=== PATIENT | female | born 1955 | race American Indian/Alaskan Native ===

== ENCOUNTER 2016-09-14 14:57 | Emergency (ER) | payer MEDICARE, MEDICAID ==
[2016-09-14 15:45] VITALS: BP 109/70
[2016-09-14] MEDS ORDERED: Clindamycin HCl 150 MG Cap PO ONE ×2 (16:27→16:38)
[2016-09-14] MEDS ORDERED: Clindamycin HCl 150 MG Cap ONE (16:38)
--- NOTE | 2016-09-15 16:16 | EDM.PDOC ---
Scribed by Juana Mendez 09/15/16 [id number] for Jorge Scales MD ED HPI GENERAL MEDICAL PROBLEM - General Chief Complaint: Skin Complaint Stated Complaint: TAILBONE LUMP, NAUSATED, [id number] Time Seen by Provider: 09/14/16 16:20 Source of Information: Reports: Patient, RN, RN Notes Reviewed History Limitations: Reports: No Limitations - History of Present Illness INITIAL COMMENTS - FREE TEXT/NARRATIVE: Arrives from home by POV with complaint of worsening pain to low back and tailbone area. Denies injury. Patient saw Dr. Torres for this yesterday. Patient was put on antibiotics, but doesn't know what kind or what for. Daughter reports that patient finished the antibiotics about 2 weeks ago and that it was Augmentin prescribed for a skin infection at the tailbone area. Denies injury. Patient takes chronic opioid pain medication for chronic DJD of the spine. Quality: Reports: Ache Severity: Severe Improves with: Reports: None Worsens with: Reports: None Associated Symptoms: Reports: No Other Symptoms Sacral Pain Score (Numeric/FACES): 7 - Related Data Allergies Allergy/AdvReac Type Severity Reaction Status Date / Time No Known Allergies Allergy Verified 09/14/16 15:23 Home Meds: Home Meds Fluticasone Propionate [Flonase] 2 spray HOWIE DAILY 12/20/13 [History] Gabapentin [Neurontin] 300 mg PO TID 12/20/13 [History] Levothyroxine 125 mcg PO DAILY 12/20/13 [History] Lisinopril [Prinivil] 20 mg PO DAILY 12/20/13 [History] Morphine 30 mg PO BID 12/20/13 [History] Oxybutynin 5 mg PO TID 12/20/13 [History] PARoxetine HCl [Paroxetine HCl] 20 mg PO DAILY 12/20/13 [History] oxyCODONE [oxyCODONE] 10 mg PO QID PRN 12/20/13 [History] B12 1 injection IM .Q30D 10/20/14 [History] Cranberry Softgells 1 ea PO ASDIRECTED 10/20/14 [History] Vitamin C 1 tab PO ASDIRECTED 10/20/14 [History] Nitrofurantoin Macrocrystal [Macrodantin] 100 mg PO BID 12/03/14 [History] Omeprazole 20 mg PO ACBRK 12/03/14 [History] PARoxetine HCl [Paroxetine HCl] 1 tab PO DAILY 12/03/14 [History] Phenazopyridine [Pyridium] 100 mg PO TID PRN 12/03/14 [History] Propranolol [Inderal LA] 60 mg PO DAILY 12/03/14 [History] Sertraline [Zoloft] 100 mg PO DAILY 12/03/14 [History] Triamcinolone Acetonide [Triamcinolone Acetonide 0.1% Crm] 15 gm TOP BID [History] rOPINIRole HCl [Ropinirole HCl] 1 tab PO DAILY 12/03/14 [History] Past Medical History HEENT History: Reports: None Cardiovascular History: Reports: CAD, SOB on Exertion Respiratory History: Reports: None Genitourinary History: Reports: UTI, Recurrent Other Musculoskeletal History: hip and knee pain Neurological History: Reports: None Other Dermatologic History: several tattoos to bilateral arms - Infectious Disease History Infectious Disease History: Reports: MRSA Social & Family History - Family History Family Medical History: Noncontributory - Tobacco Use Smoking Status *Q: Current Some Day Smoker Years of Tobacco use: 15 Packs/Tins Daily: 0.5 Second Hand Smoke Exposure: Yes - Caffeine Use Caffeine Use: Reports: Coffee, Soda - Alcohol Use Days Per Week of Alcohol Use: 0 - Recreational Drug Use Recreational Drug Use: No ED ROS GENERAL - Review of Systems Review Of Systems: ROS reveals no pertinent complaints other than HPI. ED EXAM,LOWER BACK PAIN/INJURY - Physical Exam Exam: See Below Exam Limited By: No Limitations General Appearance: Obese (morbidly), Other (chronically ill appearing.) Neck: Normal Inspection, Supple, Non-Tender, Full Range of Motion Respiratory/Chest: No Respiratory Distress Cardiovascular: Normal Peripheral Pulses, Regular Rate, Rhythm, No Edema, No Gallop, No JVD, No Murmur, No Rub Back Exam: Normal Inspection, Full Range of Motion, NT Extremities: Other (Full ROM to bilateral upper and lower extremities. No acute injury. Chronically limited ROM at L-spine.) Neurological: Alert, Normal Mood/Affect, Normal Dorsiflexion, CN II-XII Intact, Normal Plantar Flexion, Normal Gait, Normal Reflexes, No Motor/Sensory Deficits , Oriented x 3 Psychiatric: Normal Affect, Normal Mood Skin Exam: Other (Superior noted cleft with mild nonflucuant swelling, slight erythema and tenderness. No purulent drainage. ) Course - Vital Signs Last Recorded V/S: Last Vital Signs Temp 36.7 C 09/14/16 15:42 Pulse 65 09/14/16 15:42 Resp 22 H 09/14/16 15:42 BP 109/70 09/14/16 15:42 Pulse Ox 98 09/14/16 15:42 - Orders/Labs/Meds Meds: Medications Discontinued Medications Generic Name Dose Route Start Last Admin Trade Name Yong PRN Reason Stop Dose Admin Clindamycin HCl 300 mg 09/14/16 16:27 09/14/16 16:33 Cleocin PO 09/14/16 16:28 300 mg ONETIME ONE Administration Clindamycin HCl Confirm 09/14/16 16:38 Cleocin Administered 09/14/16 16:39 Dose 300 mg .ROUTE .STK-MED ONE Departure - Departure Time of Disposition: 16:31 Disposition: Home, Self-Care 01 Condition: Good Clinical Impression: Pilonidal cyst - Discharge Information Instructions: Incision and Drainage of a Pilonidal Cyst Forms: ED Department Discharge Additional Instructions: RX: Clindamycin 300mg. qid x10 days. Roll blanket or pills to sit on so that pressure is removed from the area of pain. Follow up in clinic in 7-10 days for recheck and possible surgical referral for pilonidal cyst. I have read and agree with the documentation that has been completed regarding this visit. By signing this record, I attest that the documentation was completed in my physical presence and is an accurate record of the encounter.
== END 2016-09-14 16:40 | disposition home or self-care (01) ==
LOC: DL.ED 14:57
DX: L05.91 Pilonidal cyst without abscess (principal); I25.10 Atherosclerotic heart disease of native coronary artery without angina pectoris; F17.210 Nicotine dependence, cigarettes, uncomplicated; Z79.899 Other long term (current) drug therapy
CPT/HCPCS: 99282; A9270

== ENCOUNTER 2017-01-22 15:19 | Emergency (ER) | payer MEDICARE, MEDICAID ==
[2017-01-22 17:14] VITALS: BP 141/79
[2017-01-22 18:53] LABS: CHLORIDE,CL 103 mmol/L (101-111); SODIUM,NA 136 mmol/L (135-145)
== END 2017-01-22 20:17 | disposition left against medical advice (07) ==
LOC: DL.ED 15:19
DX: Z53.21 Procedure and treatment not carried out due to patient leaving prior to being seen by health care provider (principal)
CPT/HCPCS: 36415; 80053; 81001; 85025; 99283

== ENCOUNTER 2018-08-08 18:47 | Emergency (ER) | payer MEDICARE, MEDICAID ==
[2018-08-08 19:06] VITALS: BP 157/79; PULSE 74
[2018-08-08] MEDS ORDERED: Acetaminophen 325 MG Tab PO ONE (20:15)
[2018-08-08] MEDS ORDERED: Doxycycline 100 MG Cap PO ONE (20:41)
--- NOTE | 2018-08-08 20:46 | EDM.PDOC ---
ED HPI GENERAL MEDICAL PROBLEM - General Chief Complaint: General Stated Complaint: BAD COUGH [id number] Time Seen by Provider: 08/08/18 19:10 Source of Information: Reports: Patient History Limitations: Reports: No Limitations - History of Present Illness INITIAL COMMENTS - FREE TEXT/NARRATIVE: C/o cough x [address] done in [place] today. Went too [facility] but didn' t stay to be seen and others with wanted to leave. no fever. Cloudy to green. C/ O headache, worried about BP. - Related Data Allergies Allergy/AdvReac Type Severity Reaction Status Date / Time naproxen [From Naprosyn] Allergy Cannot Verified 08/08/18 19:01 Remember Home Meds: Home Meds Gabapentin [Neurontin] 300 mg PO TID 12/20/13 [History] Levothyroxine 125 mcg PO DAILY 12/20/13 [History] Oxybutynin 5 mg PO TID 12/20/13 [History] PARoxetine HCl [Paroxetine HCl] 20 mg PO DAILY 12/20/13 [History] oxyCODONE 10 mg PO TID PRN 12/20/13 [History] B12 1 injection IM .Q30D 10/20/14 [History] Vitamin C 250 mg PO BID 10/20/14 [History] Omeprazole 20 mg PO ACBRK 12/03/14 [History] PARoxetine HCl [Paroxetine HCl] 30 mg PO DAILY 12/03/14 [History] Propranolol [Inderal LA] 60 mg PO DAILY 12/03/14 [History] Triamcinolone Acetonide [Triamcinolone Acetonide 0.1% Crm] 15 gm TOP BID [History] Carbidopa/Levodopa [Carbidopa-Levo ER 25-100] 25 mg PO BEDTIME 10/11/17 [History ] Morphine [MS Contin] 30 mg PO Q12HR 10/11/17 [History] Nitrofurantoin Macrocrystal [Macrodantin] 100 mg PO BID 10/11/17 [History] Acetaminophen [Tylenol] 650 mg PO Q8H PRN 5 Days #20 tablet 10/13/17 [Rx] Clindamycin HCl [Cleocin] 300 mg PO Q8H 7 Days #42 cap 10/13/17 [Rx] Past Medical History HEENT History: Reports: None Cardiovascular History: Reports: CAD, SOB on Exertion Respiratory History: Reports: COPD Gastrointestinal History: Reports: None Genitourinary History: Reports: UTI, Recurrent 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 Musculoskeletal History: Reports: Back Pain, Chronic, Osteoarthritis, Other ( See Below) Other Musculoskeletal History: hip and knee pain Neurological History: Reports: None Psychiatric History: Reports: None Endocrine/Metabolic History: Reports: None Hematologic History: Reports: None Immunologic History: Reports: None Oncologic (Cancer) History: Reports: None Dermatologic History: Reports: Cellulitis Other Dermatologic History: several tattoos to bilateral arms - Infectious Disease History Infectious Disease History: Reports: MRSA Social & Family History - Family History Family Medical History: Noncontributory - Tobacco Use Smoking Status *Q: Never Smoker - Caffeine Use Caffeine Use: Reports: Coffee - Recreational Drug Use Recreational Drug Use: No ED ROS GENERAL - Review of Systems Review Of Systems: See Below Constitutional: Reports: Fatigue. Denies: Fever HEENT: Reports: Glasses Respiratory: Reports: Cough Cardiovascular: Reports: No Symptoms GI/Abdominal: Reports: No Symptoms : Reports: No Symptoms Skin: Reports: No Symptoms Neurological: Reports: Headache (has not taken anything for headache) ED EXAM, GENERAL - Physical Exam Exam: See Below Exam Limited By: No Limitations General Appearance: Alert, No Apparent Distress, Anxious Eye Exam: Bilateral Eye: EOMI Ears: Normal External Exam, Normal TMs Nose: Normal Inspection Throat/Mouth: Normal Inspection Head: Atraumatic, Normocephalic Neck: Normal Inspection Respiratory/Chest: No Respiratory Distress, Wheezing. No: Respiratory Distress (inspiratory, expiratory greater right) Cardiovascular: Normal Peripheral Pulses, Regular Rate, Rhythm Back Exam: Normal Inspection Extremities: Normal Inspection, Pedal Edema (1+) Neurological: Alert, Oriented, Normal Cognition Psychiatric: Normal Affect, Anxious Skin Exam: Warm, Dry, Intact, Normal Color Course - Vital Signs Last Recorded V/S: Last Vital Signs Temp 96.7 F 08/08/18 19: Pulse 74 08/08/18 19:01 Resp 20 08/08/18 19:01 BP 157/79 H 08/08/18 19:01 Pulse Ox 88 L 08/08/18 19:01 - Orders/Labs/Meds Labs: Laboratory Tests 08/08/18 08/08/18 08/08/18 Range/Units 20:25 20:25 20:25 WBC 10.3 H (5.0-10.0) 10^3/uL RBC 4.74 (4.2-5.4) 10^6/uL Hgb 13.4 D (12.0-16.0) g/dL Hct 42.3 (37.0-47.0) % MCV 89.2 (80-100) fL MCH 28.3 (27.0-34.0) pg MCHC 31.7 L (33.0-35.0) g/dL Plt Count 241 (150-450) 10^3/uL Neut % (Auto) 73.8 (42.2-75.2) % Lymph % (Auto) 19.0 L (20.5-50.1) % [place] % (Auto) 7.0 (2-8) % Eos % (Auto) 0.1 L (1.0-3.0) % Baso % (Auto) 0.1 (0.0-1.0) % Sodium 138 (135-145) mmol/L Potassium 4.1 (3.6-5.0) mmol/L Chloride 103 (101-111) mmol/L Carbon Dioxide 27.0 (21.0-31.0) mmol/L Anion Gap 12.1 BUN 10 (7-18) mg/dL Creatinine 0.9 (0.6-1.3) mg/dL Est Cr Clr Drug Dosing 45.36 mL/min Estimated GFR (MDRD) > 60 BUN/Creatinine Ratio 11.11 Glucose 119 H (74-105) mg/dL Lactic Acid 1.1 (0.5-2.2) mmol/L Calcium 8.1 L (8.4-10.2) mg/dl Total Bilirubin 0.7 (0.2-1.0) mg/dL AST 18 (10-42) IU/L ALT 17 (10-60) IU/L Alkaline Phosphatase 92 (42-121) IU/L B-Natriuretic Peptide 68 (0-100) pg/ml Total Protein 7.0 (6.7-8.2) g/dl Albumin 3.3 (3.2-5.5) g/dl Globulin 3.7 Albumin/Globulin Ratio 0.89 Meds: Medications Discontinued Medications Generic Name Dose Route Start Last Admin Trade Name Freq PRN Reason Stop Dose Admin Acetaminophen 650 mg 08/08/18 20:15 08/08/18 20:31 Tylenol PO 08/08/18 20:16 650 mg NOW ONE Administration Doxycycline Hyclate 100 mg 08/08/18 20:41 08/08/18 20:53 Vibramycin PO 08/08/18 20:42 100 mg ONETIME ONE Administration Departure - Departure Time of Disposition: 20:42 Disposition: Home, Self-Care 01 Condition: Good Clinical Impression: Obesity, Class III, BMI 40-49.9 (morbid obesity) RLL pneumonia Qualifiers: Pneumonia type: due to unspecified organism Qualified Code(s): J18.1 - Lobar pneumonia, unspecified organism Chronic bronchitis Qualifiers: Chronic bronchitis type: unspecified Qualified Code(s): J42 - Unspecified chronic bronchitis - Discharge Information *PRESCRIPTION DRUG MONITORING PROGRAM REVIEWED*: No *COPY OF PRESCRIPTION DRUG MONITORING REPORT IN PATIENT NINA: No Referrals: PCP,None [Primary Care Provider] - Forms: ED Department Discharge Additional Instructions: robitussin per package to aid in loosening mucus doxcycline 100mg one twice daily for 10 days Follow with primary care on Tuesday, call to schedule appointment Urgent follow up if difficulty breathing monitor BP tylenol 650 mg every 4 hours as needed
[2018-08-08 20:52] LABS: ANION GAP 12.1; CHLORIDE,CL 103 mmol/L (101-111); SODIUM,NA 138 mmol/L (135-145)
== END 2018-08-08 21:02 | disposition home or self-care (01) ==
LOC: DL.ED 18:47
DX: J18.1 Lobar pneumonia, unspecified organism (principal); J42 Unspecified chronic bronchitis; E66.01 Morbid (severe) obesity due to excess calories; I25.10 Atherosclerotic heart disease of native coronary artery without angina pectoris; Z68.41 Body mass index [BMI] 40.0-44.9, adult; M19.90 Unspecified osteoarthritis, unspecified site; Z88.8 Allergy status to other drugs, medicaments and biological substances; Z79.899 Other long term (current) drug therapy; R06.2 Wheezing
CPT/HCPCS: 36415; 80053; 83605; 83880; 85025; 99283; 99284; A9270

== ENCOUNTER 2019-03-12 17:16 | Emergency (ER) | payer MEDICARE, MEDICAID ==
[2019-03-12 18:15] VITALS: BP 134/47; PULSE 73
[2019-03-12 18:52] LABS: ANION GAP 10.6; CHLORIDE,CL 111 mmol/L (101-111); SODIUM,NA 141 mmol/L (135-145)
[2019-03-12] MEDS ORDERED: Meropenem Premix 1 GM in Premix Bag 1 BAG IV ONE (19:36)
--- NOTE | 2019-03-22 14:15 | EDM.PDOC ---
Scribed by Juana Mendez 03/12/191950 for Tiaan Wang NP ED HPI GENERAL MEDICAL PROBLEM - General Chief Complaint: Respiratory Problem Stated Complaint: I.V. THERAPY Time Seen by Provider: 03/12/19 18:40 Source of Information: Reports: Patient, RN, RN Notes Reviewed History Limitations: Reports: No Limitations - History of Present Illness INITIAL COMMENTS - FREE TEXT/NARRATIVE: Patient presents to ER with complaint of history of pneumonia. Has been getting IV antibiotics for this. Today she had sweats, diarrhea and nausea. She has chills, nausea and diarrhea. No fever, sore throat or vomiting. Today she has had some sweats, diarrhea and nausea. Blood pressure last night was 165/70. Onset: Gradual Duration: Getting Worse Location: Reports: Chest Quality: Reports: Ache Severity: Moderate Improves with: Reports: None Worsens with: Reports: None Associated Symptoms: Reports: No Other Symptoms - Related Data Allergies Allergy/AdvReac Type Severity Reaction Status Date / Time naproxen [From Naprosyn] Allergy Rash Verified 03/08/19 08:19 Home Meds: Home Meds Gabapentin [Neurontin] 300 mg PO TID 12/20/13 [History] Levothyroxine 125 mcg PO DAILY 12/20/13 [History] Oxybutynin 5 mg PO TID 12/20/13 [History] PARoxetine HCl [Paroxetine HCl] 20 mg PO DAILY 12/20/13 [History] oxyCODONE 10 mg PO TID 12/20/13 [History] B12 1 injection IM .Q30D 10/20/14 [History] Omeprazole 20 mg PO BIDMEALS 12/03/14 [History] PARoxetine HCl [Paroxetine HCl] 30 mg PO DAILY 12/03/14 [History] Propranolol [Inderal LA] 60 mg PO DAILY 12/03/14 [History] Triamcinolone Acetonide [Triamcinolone Acetonide 0.1% Crm] 15 gm TOP BID PRN [History] Carbidopa/Levodopa [Carbidopa-Levo ER 25-100] 25 mg PO BEDTIME 10/11/17 [History ] Morphine [MS Contin] 30 mg PO Q12HR 10/11/17 [History] Acetaminophen [Tylenol] 650 mg PO Q8H PRN 5 Days #20 tablet 10/13/17 [Rx] Past Medical History HEENT History: Reports: Impaired Vision Cardiovascular History: Reports: Hypertension Respiratory History: Reports: Sleep Apnea Gastrointestinal History: Reports: GERD, Other (See Below) Other Gastrointestinal History: Hernia L side Genitourinary History: Reports: UTI, Recurrent 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: Musculoskeletal History: Reports: Back Pain, Chronic, Osteoarthritis, Other ( See Below) Other Musculoskeletal History: hip and knee pain Neurological History: Reports: None Psychiatric History: Reports: None, Depression Endocrine/Metabolic History: Reports: Hyperthyroidism, Obesity/BMI 30+ Hematologic History: Reports: Anemia Immunologic History: Reports: None Oncologic (Cancer) History: Reports: None Dermatologic History: Reports: Cellulitis Other Dermatologic History: several tattoos to bilateral arms - Infectious Disease History Infectious Disease History: Reports: MRSA - Past Surgical History HEENT Surgical History: Reports: None Cardiovascular Surgical History: Reports: None GI Surgical History: Reports: Colonoscopy Female Surgical History: Reports: None Endocrine Surgical History: Reports: None Musculoskeletal Surgical History: Reports: None Social & Family History - Family History Family Medical History: Noncontributory - Caffeine Use Caffeine Use: Reports: Coffee, Soda, Tea ED ROS GENERAL - Review of Systems Review Of Systems: Comprehensive ROS is negative, except as noted in HPI. ED EXAM, GENERAL - Physical Exam Exam: See Below Exam Limited By: No Limitations General Appearance: Alert, WD/WN, No Apparent Distress Eye Exam: Bilateral Eye: EOMI, Normal Inspection, PERRL Ears: Normal External Exam, Normal Canal, Hearing Grossly Normal, Normal TMs Nose: Normal Inspection, Normal Mucosa, No Blood Throat/Mouth: Other (hoarse voice) Head: Atraumatic, Normocephalic Neck: Normal Inspection, Supple, Non-Tender, Full Range of Motion Respiratory/Chest: Other (grunting respirations) Cardiovascular: Normal Peripheral Pulses, Regular Rate, Rhythm, No Edema, No Gallop, No JVD, No Murmur, No Rub GI/Abdominal: Normal Bowel Sounds, Soft, Non-Tender, No Organomegaly, No Distention, No Abnormal Bruit, No Mass (Female) Exam: Deferred Rectal (Female) Exam: Deferred Back Exam: Normal Inspection, Full Range of Motion, NT Extremities: Other (decreased mobility) Neurological: Alert, Oriented, CN II-XII Intact, Normal Cognition, Normal Gait, Normal Reflexes, No Motor/Sensory Deficits Psychiatric: Normal Affect, Normal Mood Skin Exam: Warm, Dry, Intact, Normal Color, No Rash Lymphatic: No Adenopathy Course - Vital Signs Last Recorded V/S: Last Vital Signs Temp 97.9 F 03/12/19 18:10 Pulse 73 03/12/19 18:10 Resp 14 03/12/19 18:10 BP 134/47 L 03/12/19 18:10 Pulse Ox 95 03/12/19 18:10 - Orders/Labs/Meds Orders: Active Orders 24 hr Category Date Time Status Meropenem Premix [Meropenem] 1 gm Med 03/12/19 19:36 Active Premix Bag 1 bag IV ONETIME Medication Orders Meropenem/Sodium Chloride 1 gm (/ Premix) 50 mls @ 100 mls/hr IV ONETIME ONE Stop: 03/12/19 20:05 Last Admin: 03/12/19 19:18 Dose: 100 mls/hr Labs: Laboratory Tests 03/12/19 03/12/19 Range/Units 18:30 18:30 WBC 9.6 (5.0-10.0) 10^3/uL RBC 4.90 (4.2-5.4) 10^6/uL Hgb 13.9 (12.0-16.0) g/dL Hct 42.8 (37.0-47.0) % MCV 87.3 (80-100) fL MCH 28.4 (27.0-34.0) pg MCHC 32.5 L (33.0-35.0) g/dL Plt Count 286 (150-450) 10^3/uL Neut % (Auto) 72.6 (42.2-75.2) % Lymph % (Auto) 20.3 L (20.5-50.1) % [place] % (Auto) 6.9 (2-8) % Eos % (Auto) 0.1 L (1.0-3.0) % Baso % (Auto) 0.1 (0.0-1.0) % Sodium 141 (135-145) mmol/L Potassium 3.6 (3.6-5.0) mmol/L Chloride 111 (101-111) mmol/L Carbon Dioxide 23.0 (21.0-31.0) mmol/L Anion Gap 10.6 BUN 10 (7-18) mg/dL Creatinine 0.6 (0.6-1.3) mg/dL Est Cr Clr Drug Dosing TNP Estimated GFR (MDRD) > 60 BUN/Creatinine Ratio 16.66 Glucose 116 H (74-105) mg/dL Calcium 8.4 (8.4-10.2) mg/dl Total Bilirubin 0.6 (0.2-1.0) mg/dL AST 18 (10-42) IU/L ALT 16 (10-60) IU/L Alkaline Phosphatase 83 (42-121) IU/L Total Protein 7.3 (6.7-8.2) g/dl Albumin 3.5 (3.2-5.5) g/dl Globulin 3.8 Albumin/Globulin Ratio 0.92 Meds: Medications Generic Name Dose Route Start Last Admin Trade Name Freq PRN Reason Stop Dose Admin Meropenem/Sodium Chloride 1 gm 50 mls @ 100 mls/hr 03/12/19 19:36 03/12/19 19 :18 / Premix IV 03/12/19 20:05 100 mls/hr ONETIME ONE Administration - Radiology Interpretation Free Text/Narrative:: chest xray: FINDINGS: Lungs: Unremarkable. No consolidation. Pleural space: Unremarkable. No pleural effusion. No pneumothorax. Heart/Mediastinum: Unremarkable. No cardiomegaly. Bones/joints: Unremarkable. IMPRESSION: No acute findings. Thank you for allowing us to participate in the care of your patient. Dictated and Authenticated by: Chaparro Caro MD 03/12/2019 6:46 PM Central Time ([place] & [place]) See rad report - Re-Assessments/Exams Free Text/Narrative Re-Assessment/Exam: 03/12/19 18:51 Dr. Aragon called ER stating the patient has failed outpatient treatment and needs to be admitted. Dr. Aragon states the nurse on the med surg floor told her the patient didn't qualify for admission. Departure - Departure Time of Disposition: 19:53 Disposition: Home, Self-Care 01 Condition: Fair Clinical Impression: Pneumonia Qualifiers: Pneumonia type: due to Pseudomonas Laterality: unspecified laterality Lung location: unspecified part of lung Qualified Code(s): J15.1 - Pneumonia due to Pseudomonas - Discharge Information *PRESCRIPTION DRUG MONITORING PROGRAM REVIEWED*: No *COPY OF PRESCRIPTION DRUG MONITORING REPORT IN PATIENT NINA: No Forms: ED Department Discharge Additional Instructions: Follow up for outpatient antibiotics Return to the ER with any further problems Sepsis Event Note - Focused Exam Vital Signs: Vital Signs Temp Pulse Resp BP Pulse Ox 03/12/19 18:10 97.9 F 73 14 134/47 L 95 Date Exam was Performed: 03/12/19 Time Exam was Performed: 19:46 I have read and agree with the documentation that has been completed regarding this visit. By signing this record, I attest that the documentation was completed in my physical presence and is an accurate record of the encounter.
== END 2019-03-12 20:00 | disposition home or self-care (01) ==
LOC: DL.ED 17:16
DX: J15.1 Pneumonia due to Pseudomonas (principal); I10 Essential (primary) hypertension; K21.9 Gastro-esophageal reflux disease without esophagitis; M19.90 Unspecified osteoarthritis, unspecified site; F32.9 Major depressive disorder, single episode, unspecified; E03.9 Hypothyroidism, unspecified; E66.9 Obesity, unspecified; Z88.8 Allergy status to other drugs, medicaments and biological substances; Z79.899 Other long term (current) drug therapy
CPT/HCPCS: 36415; 71046; 80053; 85025; 96365; 99283; J2185

== ENCOUNTER 2020-02-08 12:22 | Inpatient (IN) | payer MEDICARE, MEDICAID ==
[2020-02-08] MEDS ORDERED: Ondansetron 4 MG/2 ML SDV IVPUSH ONE (12:41)
[2020-02-08 12:56] LABS: CHLORIDE,CL 98 mmol/L (98-107); SODIUM,NA 134 mmol/L (136-145)
--- NOTE | 2020-02-08 13:13 | EDM.PDOC ---
ED HPI GENERAL MEDICAL PROBLEM - General Chief Complaint: Respiratory Problem Stated Complaint: AMBULANCE Time Seen by Provider: 02/08/20 13:15 Source of Information: Reports: Patient, EMS, EMS Notes Reviewed, RN, RN Notes Reviewed History Limitations: Reports: No Limitations - History of Present Illness INITIAL COMMENTS - FREE TEXT/NARRATIVE: Patient presents to the ED via EMS with complaints of nausea without vomiting. She reports she has been in recent contact with individuals who tested positive for COVID, including her father who earlier this past week. She states she does not feel ill and EMS was called by her daughter who is "..concerned." The patient verbalizes a history of COPD with frequent pneumonia infections for which she follows with pulmonology at [facility] in [place]; she takes Breo daily. Additionally, she attests to chronic cough, diarrhea and low-grade fever. She denies shaking chills, headache, sore throat, sinus pressure/drainage/pain, ear pressure/pain, chest pain/pressure, palpitations, shortness of breath, dyspepsia, abdominal pain, melena, or hematochezia. She has not taken any PRN medications for this problem. She denies tobacco, alcohol, or recreational drug use. - Related Data Allergies Allergy/AdvReac Type Severity Reaction Status Date / Time naproxen [From Naprosyn] Allergy Rash Verified 02/08/20 12:29 Home Meds: Home Meds Gabapentin [Neurontin] 300 mg PO TID 12/20/13 [History] Levothyroxine 125 mcg PO DAILY 12/20/13 [History] Oxybutynin 5 mg PO TID 12/20/13 [History] PARoxetine HCl [Paroxetine HCl] 20 mg PO DAILY 12/20/13 [History] oxyCODONE 10 mg PO TID 12/20/13 [History] B12 1 injection IM .Q30D 10/20/14 [History] Omeprazole 20 mg PO BIDMEALS 12/03/14 [History] PARoxetine HCl [Paroxetine HCl] 30 mg PO DAILY 12/03/14 [History] Propranolol [Inderal LA] 60 mg PO DAILY 12/03/14 [History] Triamcinolone Acetonide [Triamcinolone Acetonide 0.1% Crm] 15 gm TOP BID PRN 12/03/14 [History] Carbidopa/Levodopa [Carbidopa-Levo ER 25-100] 25 mg PO BEDTIME 10/11/17 [History] Morphine [MS Contin] 30 mg PO Q12HR 10/11/17 [History] Acetaminophen [Tylenol] 650 mg PO Q8H PRN 5 Days #20 tablet 10/13/17 [Rx] Past Medical History HEENT History: Reports: Impaired Vision Cardiovascular History: Reports: Hypertension Respiratory History: Reports: Sleep Apnea Gastrointestinal History: Reports: GERD, Other (See Below) Other Gastrointestinal History: Hernia L side Genitourinary History: Reports: UTI, Recurrent [employer] History: Reports: Musculoskeletal History: Reports: Back Pain, Chronic, Osteoarthritis, Other (See Below) Other Musculoskeletal History: hip and knee pain Neurological History: Reports: None Psychiatric History: Reports: Depression Endocrine/Metabolic History: Reports: Hyperthyroidism, Obesity/BMI 30+ Hematologic History: Reports: Anemia Immunologic History: Reports: None Oncologic (Cancer) History: Reports: None Dermatologic History: Reports: Cellulitis Other Dermatologic History: several tattoos to bilateral arms - Infectious Disease History Infectious Disease History: Reports: None - Past Surgical History Head Surgeries/Procedures: Reports: None HEENT Surgical History: Reports: None Cardiovascular Surgical History: Reports: None GI Surgical History: Reports: Colonoscopy Female Surgical History: Reports: None Endocrine Surgical History: Reports: None Musculoskeletal Surgical History: Reports: None Social & Family History - Family History Family Medical History: No Pertinent Family History - Tobacco Use Tobacco Use Status *Q: Never Tobacco User Second Hand Smoke Exposure: No - Caffeine Use Caffeine Use: Reports: Coffee - Recreational Drug Use Recreational Drug Use: No ED ROS GENERAL - Review of Systems Review Of Systems: Comprehensive ROS is negative, except as noted in HPI. ED EXAM, GENERAL - Physical Exam Exam: See Below Exam Limited By: No Limitations General Appearance: Alert, Moderate Distress, Obese Eye Exam: Bilateral Eye: EOMI, Normal Inspection, PERRL Ears: Normal External Exam, Normal Canal, Hearing Grossly Normal, Normal TMs Ear Exam: Bilateral Ear: Auricle Normal, Canal Normal, TM normal Nose: Normal Inspection. No: Nasal Tenderness, Nasal Swelling, Nasal Drainage Throat/Mouth: Normal Inspection, Normal Voice, No Airway Compromise Head: Atraumatic, Normocephalic Neck: Normal Inspection, Supple, Non-Tender, Full Range of Motion. No: Lymphadenopathy (L), Lymphadenopathy (R) Respiratory/Chest: Rales, Rhonchi, Wheezing (Inspiratory and expiratory to bilateral upper lobes), Accessory Muscle Use Cardiovascular: Normal Peripheral Pulses, Regular Rate, Rhythm, No Edema, No Gallop, No JVD, No Murmur, No Rub Peripheral Pulses: 2+: Radial (L), Radial (R), Dorsalis Pedis (L), Dorsalis Pedis (R) GI/Abdominal: Normal Bowel Sounds, Soft, Non-Tender, No Distention, No Mass, Pelvis Stable Back Exam: Normal Inspection, Full Range of Motion Extremities: Normal Inspection, Normal Range of Motion, Non-Tender, No Pedal Edema, Normal Capillary Refill Neurological: Alert, Oriented, CN II-XII Intact, Normal Cognition, Normal Gait, No Motor/Sensory Deficits Psychiatric: Normal Affect, Normal Mood Skin Exam: Warm, Dry, Intact, No Rash, Pallor. No: Ecchymosis, Erythema, Mottled, Petechiae #1 Interpretation EKG Date: 02/08/20 Time: 12:40 Rhythm: NSR Rate (Beats/Min): 77 Moody: LAD-Left Moody Deviation P-Wave: Present QRS: Wide ST-T: Normal QT: Normal Course - Vital Signs Last Recorded V/S: Last Vital Signs Temp 98.2 F 02/08/20 12:36 Pulse 84 02/08/20 12:36 Resp 22 H 02/08/20 12:36 BP 112/95 H 02/08/20 12:36 Pulse Ox 91 L 02/08/20 12:36 - Orders/Labs/Meds Orders: Active Orders 24 hr Category Date Time Status EKG Documentation Completion [RC] STAT Care 02/08/20 12:32 Active CULTURE BLOOD [BC] Stat Lab 02/08/20 12:25 Received Labs: Laboratory Tests 02/08/20 02/08/20 02/08/20 Range/Units 12:10 12:25 12:25 WBC 8.6 (5.0-10.0) 10^3/uL RBC 4.69 (4.2-5.4) 10^6/uL Hgb 13.1 (12.0-16.0) g/dL Hct 41.0 (37.0-47.0) % MCV 87.4 (80-100) fL MCH 27.9 (27.0-34.0) pg MCHC 32.0 L (33.0-35.0) g/dL Plt Count 270 (150-450) 10^3/uL Neut % (Auto) 87.4 H (42.2-75.2) % Lymph % (Auto) 8.2 L (20.5-50.1) % [place] % (Auto) 4.1 (2-8) % Eos % (Auto) 0.2 L (1.0-3.0) % Baso % (Auto) 0.1 (0.0-1.0) % D-Dimer, Quantitative 2320 H (0-400) ng/mL Sodium (136-145) mmol/L Potassium (3.5-5.1) mmol/L Chloride (98-107) mmol/L Carbon Dioxide (21-32) mmol/L Anion Gap (7-13) mEq/L BUN (7-18) mg/dL Creatinine (0.55-1.02) mg/dL Est Cr Clr Drug Dosing mL/min Estimated GFR (MDRD) BUN/Creatinine Ratio (No establ ref range) Glucose (74-99) mg/dL Lactic Acid (0.4-2.0) mmol/L Calcium (8.5-10.1) mg/dL Total Bilirubin (0.2-1.0) mg/dL AST (15-37) U/L ALT (14-59) U/L Alkaline Phosphatase (46-116) U/L Troponin I (0.000-0.056) ng/mL C-Reactive Protein (0.0-0.9) mg/dL B-Natriuretic Peptide (0-100) pg/ml Total Protein (6.4-8.2) g/dL Albumin (3.4-5.0) g/dL Globulin Albumin/Globulin Ratio SARS CoV-2 RNA Rapid LANCE Positive H (NEGATIVE) 02/08/20 02/08/20 Range/Units 12:25 12:25 WBC (5.0-10.0) 10^3/uL RBC (4.2-5.4) 10^6/uL Hgb (12.0-16.0) g/dL Hct (37.0-47.0) % MCV (80-100) fL MCH (27.0-34.0) pg MCHC (33.0-35.0) g/dL Plt Count (150-450) 10^3/uL Neut % (Auto) (42.2-75.2) % Lymph % (Auto) (20.5-50.1) % [place] % (Auto) (2-8) % Eos % (Auto) (1.0-3.0) % Baso % (Auto) (0.0-1.0) % D-Dimer, Quantitative (0-400) ng/mL Sodium 134 L (136-145) mmol/L Potassium 4.0 (3.5-5.1) mmol/L Chloride 98 (98-107) mmol/L Carbon Dioxide 27 (21-32) mmol/L Anion Gap 13.0 (7-13) mEq/L BUN 13 (7-18) mg/dL Creatinine 0.89 (0.55-1.02) mg/dL Est Cr Clr Drug Dosing 53.69 mL/min Estimated GFR (MDRD) > 60 BUN/Creatinine Ratio 14.6 (No establ ref range) Glucose 126 H (74-99) mg/dL Lactic Acid 1.5 (0.4-2.0) mmol/L Calcium 8.1 L (8.5-10.1) mg/dL Total Bilirubin 0.3 (0.2-1.0) mg/dL AST 23 (15-37) U/L ALT 20 (14-59) U/L Alkaline Phosphatase 97 (46-116) U/L Troponin I < 0.017 (0.000-0.056) ng/mL C-Reactive Protein 10.0 H (0.0-0.9) mg/dL B-Natriuretic Peptide 73 (0-100) pg/ml Total Protein 7.7 (6.4-8.2) g/dL Albumin 2.4 L (3.4-5.0) g/dL Globulin 5.3 Albumin/Globulin Ratio 0.45 SARS CoV-2 RNA Rapid LANCE (NEGATIVE) Meds: Medications Discontinued Medications Generic Name Dose Route Start Last Admin Trade Name Freq PRN Reason Stop Dose Admin Iopamidol 100 ml 02/08/20 13:57 02/08/20 13:58 Isovue-370 (76%) IVPUSH 02/08/20 13:58 79 ml ONETIME ONE Administration Ondansetron HCl 4 mg 02/08/20 12:41 11/27/20 12:49 Zofran IVPUSH 02/08/20 12:42 4 mg ONETIME ONE Administration - Re-Assessments/Exams Free Text/Narrative Re-Assessment/Exam: 02/08/20 Patient resting in bed, requires 6L of O2 via NC to maintain oxygen saturations >92%. D-dimer 2300+, will obtain PE study. 02/08/20 14:34 PE study unremarkable for thrombus, pneumonia processes noted in bilateral lower lobes. Case discussed with Dr. Cochran who kindly accepted the care of this patient for acute admission. Departure - Departure Time of Disposition: 14:31 Disposition: Admitted As Inpatient 65 Condition: Fair Clinical Impression: Pneumonia due to COVID-19 virus - Discharge Information Forms: ED Department Discharge Sepsis Event Note (ED) - Evaluation Sepsis Screening Result: No Definite Risk - Focused Exam Vital Signs: Vital Signs Temp Pulse Resp BP Pulse Ox 02/08/20 12:36 98.2 F 84 22 H 112/95 H 91 L - My Orders Last 24 Hours: My Active Orders 02/08/20 12:25 CULTURE BLOOD [BC] Stat 02/08/20 12:32 EKG Documentation Completion [RC] STAT - Assessment/Plan Last 24 Hours: My Active Orders 02/08/20 12:25 CULTURE BLOOD [BC] Stat 02/08/20 12:32 EKG Documentation Completion [RC] STAT
[2020-02-08] MEDS ORDERED: Iopamidol 755 Mg/ML 100 ML Bottle IVPUSH ONE (13:57)
--- NOTE | 2020-02-08 14:17 | CT ---
EXAMINATION: Chest w Cont SEX: Female AGE: 65 years CLINICAL HISTORY: 65-year-old female with coughing and SHORTNESS OF BREATH (SOB). This COVID 19 positive (+)patient has a serum D dimer 2300. Comparison CT chest 22 August 2019. Scan technique: Volume acquisition of data emergency CT scan of the chest (bony thorax, lungs and mediastinum) obtained with patient lying supine on the Siemens multislice scanner [place], [place] during intravenous administration of 79 cc nonionic Isovue 370 contrast at 5 cc/s per protocol. All data archived in the PACS system for storage, reformatting axial/sagittal/coronal planes and study (lung/mediastinal windows). Interpretation: Abnormal. 1. Kyphoscoliosis; multilevel disc disease; hypertrophic spondylosis. No fracture or dislocation dorsal spine. 2. Huge paraesophageal hernia filling the mediastinum and lower left hemithorax. 3. *New, multilobar "groundglass" infiltrates involving both lung smyht characteristic of COVID pneumonia. 4. Note: *Asymmetric dense new consolidation involving most of the posterior segment right lower lobe (RLL) with underlying air bronchograms. Aspiration or bacterial pneumonia suspected. Clinical? 5. No associated new hilar/mediastinal lymphadenopathy or dependent pleural effusions. 6. Chronic mild cardiomegaly. No pericardial effusion, new pulmonary vascular congestion or alveolar edema. Normal caliber thoracic aorta. 7. Cholecystectomy. Fatty liver and large spleen. Pancreas unremarkable. 8. No pneumothorax or pneumomediastinum. Note: No current signs of intraluminal filling defect or thrombus of major pulmonary artery circulation; and no associated focal areas of abnormal lobar oligemia or peripheral "wedge shaped" pleural-based abnormality characteristic of usual pulmonary embolism/infarct. CONCLUSION: Abnormal i.e. new multilobar infiltrates (See above) suggesting pneumonia (COVID19 and/or aspiration). Huge hiatus hernia. No sign of heart failure or lung malignancy.
[2020-02-08] MEDS ORDERED: Docusate Sodium 100 MG Cap PO PRN (15:31)
[2020-02-08] MEDS ORDERED: Acetaminophen 325 MG Tab PO PRN (15:31)
[2020-02-08] MEDS ORDERED: Ondansetron 4 MG Tab.DIS PO PRN (16:00)
--- NOTE | 2020-02-08 16:31 | HP ---
CHIEF COMPLAINT: Not feeling well and nausea. HISTORY OF PRESENT ILLNESS: The patient is a 65-year-old female with past medical history of obesity, anxiety, depression, restless legs syndrome, COPD, obstructive sleep apnea, recurrent UTI, was admitted through the emergency room because the patient was complaining of some nausea. She reports she has been in contact with individuals who tested positive for COVID including her father who earlier this week. The patient mentioned that she does not feel ill, and she denies any fever, headache, sore throat, chest pain, shortness of breath, orthopnea, PND, or any other complaints, and she was seen in the emergency room. She tested positive for COVID and her oxygen saturation on room air is in the 80s, and CAT scan of the chest showed some ground-glass appearance compatible with COVID pneumonia. Because of this, she was then admitted for further evaluation and management. PAST MEDICAL HISTORY: As in HPI. FAMILY HISTORY: Noncontributory. The patient's father recently from COVID. SOCIAL HISTORY: The patient is not . She is a nonsmoker, non-alcohol drinker. HOME MEDICATIONS: Gabapentin 300 mg t.i.d., levothyroxine 125 mcg daily, oxybutynin 5 mg t.i.d., Paxil 20 mg daily, oxycodone 10 mg t.i.d., B12 injections monthly, omeprazole 20 mg b.i.d., propranolol 60 mg daily, carbidopa/levodopa at bedtime, MS Contin 30 mg b.i.d., and Tylenol 60 mg q.8 p.r.n. ALLERGIES: Naproxen. PHYSICAL EXAMINATION: General: The patient is very pleasant. She is alert and oriented, not in any acute distress. Vital Signs: Blood pressure is 112/95, pulse of 84, respirations 22, temperature of 98.2, saturation is 91% on high-flow nasal cannula. SHEENT: Normocephalic. There are pink palpebral conjunctivae. Sclerae anicteric. Neck: Supple. No JVD. No lymphadenopathy. Heart: Regular rate and rhythm. Normal S1 and S2. No gallops. No rubs. Lungs: Remarkable for diminished breath sounds on both bases with rhonchi and mild scattered wheezing bilaterally. Abdomen: Morbidly obese, soft, nontender. Extremities: Negative for any pedal edema. No calf tenderness. LABORATORY DATA: Lab workup: CBC unremarkable. Comp panel: Sodium is 134, glucose is 126. The rest of the comp panel unremarkable. Lactic acid is 1.5. Troponin is less than 0.017. D-dimer is 2320. SARS-CoV-2 RNA is detected. CAT scan of the chest showed new multilobar ground-glass infiltrates involving both lung smyth characteristic of COVID pneumonia. There is also asymmetric dense new consolidation involving most of the posterior segment of the right lower lobe with underlying bronchograms, aspiration bacterial pneumonia suspected. ADMITTING DIAGNOSES: 1. Hypoxemia. 2. Pneumonia. 3. COVID-positive. 4. Anxiety and depression. 5. Obesity. 6. Obstructive sleep apnea. 7. Osteoarthritis. TREATMENT PLAN: The patient is going to be admitted to COVID isolation room and she will be empirically started on IV antibiotics, Rocephin and Zithromax. She will also be on IV dexamethasone and also on remdesivir. The rest of the management as necessary and the patient is a full code. She will also be resumed on her home medication. I spoke with the patient and provided information about remdesivir treatment as being under emergency use authorization and not fully FDA approved or reviewed. I discussed potential side effects including liver abnormalities and also discussed other potential treatment options that are currently not FDA approved to treat COVID-19. The patient gives permission for remdesivir. [facility] /[id number] MTDD
[2020-02-08] MEDS: Sodium Chloride 0.9% 1,000 ML IV SCH (16:39)
[2020-02-08] MEDS: cefTRIAXone 1 GM in Sodium Chloride 0.9% 50 ML IV SCH (16:39)
[2020-02-08] MEDS: Azithromycin 500 MG in Sodium Chloride 0.9% 250 ML IV SCH (16:42)
[2020-02-08] MEDS: Enoxaparin 40 MG/0.4 ML Syringe SUBCUT SCH (16:43)
[2020-02-08] MEDS: Dexamethasone 4 MG/ML SDV IVPUSH SCH (16:43)
[2020-02-08] MEDS: Albuterol 6.7 GM Inhaler INH SCH ×2 (16:45→21:13)
[2020-02-08] MEDS: oxyCODONE 5 MG Tab PO PRN ×2 (16:45→21:12)
[2020-02-08] MEDS: Mometasone Furoate Powder 220 MCG/Puff 14 Dose Inhaler INH SCH (17:01)
[2020-02-08] MEDS: Omeprazole 20 MG Cap.CR PO SCH (17:01)
[2020-02-08] MEDS ORDERED: Gabapentin 300 MG Cap PO SCH (21:00)
[2020-02-08] MEDS ORDERED: Carbidopa/Levodopa 25-100 MG Tab.ER PO SCH (21:00)
[2020-02-08] MEDS: Morphine 30 MG Tab.ER PO SCH (21:10)
[2020-02-08] MEDS: Oxybutynin 5 MG Tab PO SCH (21:12)
[2020-02-08] MEDS: Gabapentin 400 MG Cap PO SCH (21:12)
[2020-02-09] MEDS: Levothyroxine 125 MCG Tab PO SCH (05:47)
[2020-02-09] MEDS: Albuterol 6.7 GM Inhaler INH SCH ×5 (05:48→20:58)
[2020-02-09] MEDS: Mometasone Furoate Powder 220 MCG/Puff 14 Dose Inhaler INH SCH ×3 (05:55→18:00)
[2020-02-09] MEDS: Sodium Chloride 0.9% 1,000 ML IV SCH (06:03)
[2020-02-09 06:45] LABS: ANION GAP 12.2 mEq/L (7-13); CHLORIDE,CL 105 mmol/L (98-107); SODIUM,NA 140 mmol/L (136-145)
[2020-02-09] MEDS ORDERED: hydrOXYzine HCl 25 MG Tab PO PRN (07:30)
[2020-02-09] MEDS ORDERED: Acetaminophen 325 MG Tab PO PRN (07:30)
[2020-02-09] MEDS ORDERED: Non-Formulary Medication 1 Each (Ondansetron Hcl 4 MG) PO PRN (07:30)
[2020-02-09] MEDS ORDERED: Gabapentin 400 MG Cap PO SCH (09:00)
[2020-02-09] MEDS ORDERED: PARoxetine 20 MG Tab PO SCH (09:00)
[2020-02-09] MEDS ORDERED: Oxybutynin 5 MG Tab.ER PO SCH (09:00)
[2020-02-09] MEDS ORDERED: OXYCODONE HCL 10 MG PO SCH (09:00)
[2020-02-09] MEDS: PARoxetine 20 MG Tab PO SCH (09:19)
[2020-02-09] MEDS: Morphine 30 MG Tab.ER PO SCH ×2 (09:21→20:56)
[2020-02-09] MEDS: Omeprazole 20 MG Cap.CR PO SCH ×2 (09:21→18:01)
[2020-02-09] MEDS: Oxybutynin 5 MG Tab PO SCH ×3 (09:23→20:49)
[2020-02-09] MEDS: Propranolol 60 MG Cap.ER PO SCH (09:23)
[2020-02-09] MEDS: Enoxaparin 40 MG/0.4 ML Syringe SUBCUT SCH (09:24)
[2020-02-09] MEDS: Dexamethasone 4 MG/ML SDV IVPUSH SCH (09:24)
[2020-02-09] MEDS: Gabapentin 400 MG Cap PO SCH ×3 (09:25→20:49)
--- NOTE | 2020-02-09 10:29 | PN ---
DATE: 02/09/2020 SUBJECTIVE: The patient mentioned that she is feeling a little bit better and she is still short of breath, but coughing spells are a little bit better. She denies any chest pain, abdominal pain, fever, chills, nor any other complaints. LABORATORY DATA: Lab workup this morning; CBC: WBC 4.9, hemoglobin is 12.5, hematocrit is 39.2, platelet is 269. Comp panel remarkable for glucose of 180, calcium of 7.6. The rest of the panel unremarkable. OBJECTIVE: Vital Signs: Blood pressure is 129/49, pulse of 59, respirations of 18, temperature of 97.4, saturation is 95% on 4 L per nasal cannula. Heart: Regular rate and rhythm. No gallops. No rubs. Lungs: Still remarkable for some mild rhonchi, but no significant wheezing. Abdomen: Obese, soft, nontender. Extremities: Negative for any pedal edema. No calf tenderness. MEDICATIONS: Reviewed. PLAN: We will continue with her IV antibiotics, azithromycin and ceftriaxone, and continue with IV dexamethasone as well as the remdesivir. [facility] /[id number]
[2020-02-09] MEDS: METHENAMINE HIPPURATE 1 GM PO SCH ×2 (11:42→20:57)
[2020-02-09] MEDS: oxyCODONE 5 MG Tab PO PRN ×2 (13:58→20:54)
[2020-02-09] MEDS: cefTRIAXone 1 GM in Sodium Chloride 0.9% 50 ML IV SCH (16:11)
[2020-02-09] MEDS: Azithromycin 500 MG in Sodium Chloride 0.9% 250 ML IV SCH (16:44)
[2020-02-09] MEDS: Codeine/guaiFENesin 10-100 MG/5 ML Syrup 5 ML Cup PO PRN (20:45)
[2020-02-09] MEDS: Sodium Chloride 0.9% 10 ML Syringe FLUSH PRN ×3 (20:46→20:50)
[2020-02-09] MEDS: Carbidopa/Levodopa 25-100 MG Tab PO SCH (20:49)
[2020-02-09] MEDS: Sodium Chloride 0.9% 10 ML Syringe FLUSH SCH (20:52)
[2020-02-10] MEDS: Codeine/guaiFENesin 10-100 MG/5 ML Syrup 5 ML Cup PO PRN ×3 (04:30→22:03)
[2020-02-10] MEDS ORDERED: Levothyroxine 25 MCG Tab PO SCH (06:00)
[2020-02-10] MEDS: Levothyroxine 125 MCG Tab PO SCH (06:04)
[2020-02-10] MEDS: Albuterol 6.7 GM Inhaler INH SCH ×4 (06:05→22:10)
[2020-02-10] MEDS: Mometasone Furoate Powder 220 MCG/Puff 14 Dose Inhaler INH SCH ×2 (06:07→17:12)
[2020-02-10] MEDS: PARoxetine 20 MG Tab PO SCH (08:32)
[2020-02-10] MEDS: Oxybutynin 5 MG Tab PO SCH ×3 (08:33→22:01)
[2020-02-10] MEDS: Enoxaparin 40 MG/0.4 ML Syringe SUBCUT SCH (08:33)
[2020-02-10] MEDS: Gabapentin 400 MG Cap PO SCH ×4 (08:33→22:02)
[2020-02-10] MEDS: Omeprazole 20 MG Cap.CR PO SCH ×2 (08:33→17:11)
[2020-02-10] MEDS: Propranolol 60 MG Cap.ER PO SCH (08:33)
[2020-02-10] MEDS: Morphine 30 MG Tab.ER PO SCH ×2 (08:33→21:59)
[2020-02-10] MEDS: Dexamethasone 4 MG/ML SDV IVPUSH SCH (08:34)
[2020-02-10] MEDS: METHENAMINE HIPPURATE 1 GM PO SCH ×2 (08:35→22:11)
[2020-02-10] MEDS: Benzonatate 100 MG Cap PO PRN (09:26)
[2020-02-10] MEDS: oxyCODONE 5 MG Tab PO PRN ×3 (09:26→18:23)
--- NOTE | 2020-02-10 09:52 | PN ---
DATE: 02/10/2020 SUBJECTIVE: The patient is doing fairly well, but she is still hypoxemic and she still needs 4 L of oxygen per nasal cannula to keep her saturation above 90, but she denies any chest pain, abdominal pain, diarrhea, orthopnea, PND, nor any other complaints. OBJECTIVE: Vital Signs: Blood pressure is 153/58, pulse 60, respirations 20, temperature of 97.2, and saturation is 92% on 3.5 L per nasal cannula. Heart: Regular rate and rhythm. No gallops. No rubs. Lungs: Still remarkable for rhonchi on both lung smyth. Abdomen: Obese, soft, nontender. Extremities: Negative for any pedal edema. No calf tenderness. MEDICATIONS: Reviewed. PLAN: We will continue with her present management and continue with IV antibiotics and IV dexamethasone and remdesivir. [facility] /[id number]
[2020-02-10] MEDS: cefTRIAXone 1 GM in Sodium Chloride 0.9% 50 ML IV SCH (16:02)
[2020-02-10] MEDS: Azithromycin 500 MG in Sodium Chloride 0.9% 250 ML IV SCH (17:12)
[2020-02-10] MEDS: Sodium Chloride 0.9% 10 ML Syringe FLUSH PRN ×2 (20:28→21:58)
[2020-02-10] MEDS: Sodium Chloride 0.9% 10 ML Syringe FLUSH SCH (21:53)
[2020-02-10] MEDS: Carbidopa/Levodopa 25-100 MG Tab PO SCH (22:02)
[2020-02-11] MEDS: Levothyroxine 125 MCG Tab PO SCH (05:38)
[2020-02-11] MEDS: oxyCODONE 5 MG Tab PO PRN ×3 (05:49→18:10)
[2020-02-11] MEDS: Albuterol 6.7 GM Inhaler INH SCH ×4 (08:55→21:41)
[2020-02-11] MEDS: Enoxaparin 40 MG/0.4 ML Syringe SUBCUT SCH (08:59)
[2020-02-11] MEDS: PARoxetine 20 MG Tab PO SCH (09:00)
[2020-02-11] MEDS: Omeprazole 20 MG Cap.CR PO SCH ×2 (09:00→18:18)
[2020-02-11] MEDS: METHENAMINE HIPPURATE 1 GM PO SCH ×2 (09:00→21:42)
[2020-02-11] MEDS: Mometasone Furoate Powder 220 MCG/Puff 14 Dose Inhaler INH SCH ×2 (09:00→18:08)
[2020-02-11] MEDS: Morphine 30 MG Tab.ER PO SCH ×2 (09:02→21:40)
[2020-02-11] MEDS: Gabapentin 400 MG Cap PO SCH ×3 (09:05→21:41)
[2020-02-11] MEDS: Oxybutynin 5 MG Tab PO SCH ×3 (09:06→21:40)
[2020-02-11] MEDS: Propranolol 60 MG Cap.ER PO SCH (09:06)
[2020-02-11] MEDS: Dexamethasone 4 MG/ML SDV IVPUSH SCH (09:07)
[2020-02-11] MEDS: Benzonatate 100 MG Cap PO PRN (09:07)
[2020-02-11] MEDS: Codeine/guaiFENesin 10-100 MG/5 ML Syrup 5 ML Cup PO PRN (09:07)
--- NOTE | 2020-02-11 10:57 | PN ---
DATE: 02/11/2020 SUBJECTIVE: The patient is still complaining of shortness of breath and the patient still desaturates with [id number] activity. The patient was converted to high-flow nasal cannula this morning as the patient is a mouth breather, to keep her saturation above 90%. The patient denies though any chest pain, fever, chills, abdominal pain, nor any other significant complaints. LABORATORY DATA: Lab workup this morning, liver function tests are within normal limits. OBJECTIVE: Vital Signs: Blood pressure is 141/65, pulse 84, respirations of 22, temperature of 98, saturation is 89% on high-flow nasal cannula at 15% FiO2. Heart: Regular rate and rhythm. Normal S1 and S2. No gallops. No rubs. Lungs: Still remarkable for some rhonchi and mild crackles in both lung smyth. Abdomen: Obese, soft, nontender. Bowel sounds positive. Extremities: Negative for any significant pedal edema. No calf tenderness. MEDICATIONS: Reviewed. PLAN: We will continue with her IV antibiotics and IV dexamethasone and remdesivir and continue with her inhalers and oxygen as well as Lovenox for DVT prophylaxis. [facility] /[id number]
[2020-02-11] MEDS: cefTRIAXone 1 GM in Sodium Chloride 0.9% 50 ML IV SCH (16:42)
[2020-02-11] MEDS: Azithromycin 500 MG in Sodium Chloride 0.9% 250 ML IV SCH (16:46)
[2020-02-11] MEDS ORDERED: Water For Injection, Sterile 20 ML ONE (19:57)
[2020-02-11] MEDS: Sodium Chloride 0.9% 10 ML Syringe FLUSH PRN (20:29)
[2020-02-11] MEDS: Sodium Chloride 0.9% 10 ML Syringe FLUSH SCH (21:36)
[2020-02-11] MEDS: Carbidopa/Levodopa 25-100 MG Tab PO SCH (21:40)
[2020-02-12] MEDS: Levothyroxine 125 MCG Tab PO SCH (06:19)
[2020-02-12] MEDS: Albuterol 6.7 GM Inhaler INH SCH ×4 (06:20→20:56)
[2020-02-12] MEDS: Mometasone Furoate Powder 220 MCG/Puff 14 Dose Inhaler INH SCH ×2 (06:21→18:46)
[2020-02-12 06:58] LABS: ANION GAP 11.3 mEq/L (7-13); CHLORIDE,CL 106 mmol/L (98-107); SODIUM,NA 141 mmol/L (136-145)
[2020-02-12] MEDS: Propranolol 60 MG Cap.ER PO SCH ×2 (07:57→11:59)
[2020-02-12] MEDS: Omeprazole 20 MG Cap.CR PO SCH ×2 (07:57→18:45)
[2020-02-12] MEDS: Dexamethasone 4 MG/ML SDV IVPUSH SCH ×2 (07:57→11:59)
[2020-02-12] MEDS: Enoxaparin 40 MG/0.4 ML Syringe SUBCUT SCH ×2 (07:58→11:59)
[2020-02-12] MEDS: METHENAMINE HIPPURATE 1 GM PO SCH ×2 (07:59→20:55)
[2020-02-12] MEDS: Morphine 30 MG Tab.ER PO SCH ×2 (07:59→20:50)
[2020-02-12] MEDS: PARoxetine 20 MG Tab PO SCH (08:00)
[2020-02-12] MEDS: Gabapentin 400 MG Cap PO SCH ×4 (08:00→20:50)
[2020-02-12] MEDS: Oxybutynin 5 MG Tab PO SCH ×3 (08:00→20:50)
--- NOTE | 2020-02-12 09:26 | PN ---
DATE: 02/12/2020 SUBJECTIVE: The patient still has shortness of breath, but overall she is feeling well. She denies any chest pain. She had a good night sleep. She denies any abdominal pain nor any other complaints. The patient is still needing oxygen to keep her saturation above 90%. LABORATORY DATA: Lab workup this morning, CBC: WBC 11.6, hemoglobin is 13.1, hematocrit is 41, and platelet is 300. Comp panel: Glucose is 110, calcium is 7.9, and albumin is 2.3. The rest of the panel unremarkable. OBJECTIVE: Vital Signs: Blood pressure is 154/66, pulse of 58, respiration of 22, temperature of 97.7, and saturation is 91% on 15% FiO2. Heart: Regular rate and rhythm. Lungs: Have diminished breath sounds on both bases and still remarkable for some rhonchi and mild expiratory wheeze. Abdomen: Obese, soft, and nontender. Extremities: Negative for any pedal edema. No calf tenderness. MEDICATIONS: Reviewed. PLAN: We will continue with her IV antibiotics that is ceftriaxone and azithromycin. We will also continue with IV dexamethasone and remdesivir and we will also continue with her inhalers. [facility] /[id number]
[2020-02-12] MEDS: oxyCODONE 5 MG Tab PO PRN (11:27)
[2020-02-12] MEDS: cefTRIAXone 1 GM in Sodium Chloride 0.9% 50 ML IV SCH (16:57)
[2020-02-12] MEDS: Azithromycin 500 MG in Sodium Chloride 0.9% 250 ML IV SCH (16:57)
[2020-02-12] MEDS ORDERED: REMDESIVIR 100 MG in Sodium Chloride 0.9% 100 ML IV SCH (20:00)
[2020-02-12] MEDS: Sodium Chloride 0.9% 10 ML Syringe FLUSH PRN (20:31)
[2020-02-12] MEDS: Carbidopa/Levodopa 25-100 MG Tab PO SCH (20:49)
[2020-02-12] MEDS: Sodium Chloride 0.9% 10 ML Syringe FLUSH SCH (22:21)
[2020-02-13] MEDS: Levothyroxine 125 MCG Tab PO SCH (05:06)
[2020-02-13] MEDS: Enoxaparin 40 MG/0.4 ML Syringe SUBCUT SCH (08:05)
[2020-02-13] MEDS: Omeprazole 20 MG Cap.CR PO SCH ×2 (08:07→17:16)
[2020-02-13] MEDS: Morphine 30 MG Tab.ER PO SCH ×2 (08:07→22:07)
[2020-02-13] MEDS: Propranolol 60 MG Cap.ER PO SCH (08:07)
[2020-02-13] MEDS: PARoxetine 20 MG Tab PO SCH (08:08)
[2020-02-13] MEDS: Oxybutynin 5 MG Tab PO SCH ×3 (08:08→22:02)
[2020-02-13] MEDS: Dexamethasone 4 MG/ML SDV IVPUSH SCH (08:09)
[2020-02-13] MEDS: Albuterol 6.7 GM Inhaler INH SCH ×4 (08:10→22:10)
[2020-02-13] MEDS: METHENAMINE HIPPURATE 1 GM PO SCH ×2 (08:10→22:02)
[2020-02-13] MEDS: Mometasone Furoate Powder 220 MCG/Puff 14 Dose Inhaler INH SCH ×2 (08:11→17:17)
[2020-02-13] MEDS: Sodium Chloride 0.9% 10 ML Syringe FLUSH PRN ×3 (08:14→22:14)
--- NOTE | 2020-02-13 11:47 | PCM.PN ---
- General Info Date of Service: 02/13/20 Admission Dx/Problem (Free Text): COVID-19 pneumonia with respiratory failure. Functional Status: Reports: Pain Controlled - Review of Systems General: Reports: No Symptoms HEENT: Reports: No Symptoms Pulmonary: Reports: Shortness of Breath, Cough Cardiovascular: Reports: No Symptoms Gastrointestinal: Reports: No Symptoms Genitourinary: Reports: No Symptoms Musculoskeletal: Reports: No Symptoms Skin: Reports: No Symptoms Neurological: Reports: No Symptoms Psychiatric: Reports: No Symptoms - Patient Data Vitals - Most Recent: Last Vital Signs Temp 97.7 F 02/13/20 07:59 Pulse 59 L 02/13/20 07:59 Resp 22 H 02/13/20 07:59 BP 159/59 H 02/13/20 07:59 Pulse Ox 91 L 02/13/20 11:10 Weight - Most Recent: 242 lb I&O - Last 24 Hours: Intake & Output 02/12/20 02/13/20 02/13/20 22:59 06:59 14:59 Intake Total 333 500 500 Output Total 1000 1500 800 Balance -667 -1000 -300 Lab Results Last 24 Hours: Laboratory Results - last 24 hr 02/13/20 Range/Units 06:12 Total Bilirubin 0.4 (0.2-1.0) mg/dL Direct Bilirubin 0.2 (0.0-0.2) mg/dL Indirect Bilirubin 0.2 AST 13 L (15-37) U/L ALT 17 (14-59) U/L Alkaline Phosphatase 83 (46-116) U/L Total Protein 6.6 (6.4-8.2) g/dL Albumin 2.1 L (3.4-5.0) g/dL Globulin 4.5 Albumin/Globulin Ratio 0.47 [place] Results Last 24 Hours: Microbiology 02/08/20 12:25 Aerobic Blood Culture - Preliminary Blood - Venous - Iv Start NO GROWTH AFTER 4 DAYS Anaerobic Blood Culture - Preliminary NO GROWTH AFTER 4 DAYS Med Orders - Current: Current Medications Acetaminophen (Tylenol) 650 mg PO Q8H PRN PRN Reason: Pain (Mild 1-3)/fever Albuterol (Proventil Hfa) 0 gm INH QIDRT [facility] Last Admin: 02/13/20 08:10 Dose: 2 puff Documented by: Benzonatate (Tessalon Perles) 100 mg PO QID PRN PRN Reason: Cough Last Admin: 02/11/20 09:07 Dose: 100 mg Documented by: Carbidopa/Levodopa (Sinemet 25-100 Mg) 1 tab PO BEDTIME [facility] Last Admin: 02/12/20 20:49 Dose: 1 tab Documented by: Dexamethasone (Decadron) 6 mg IVPUSH DAILY [facility] Stop: 02/17/20 09:01 Last Admin: 02/13/20 08:09 Dose: 6 mg Documented by: Docusate Sodium (Colace) 100 mg PO BID PRN PRN Reason: Constipation Last Admin: 02/11/20 09:02 Dose: 100 mg Documented by: Enoxaparin Sodium (Lovenox) 40 mg SUBCUT DAILY [facility] Last Admin: 02/13/20 08:05 Dose: 40 mg Documented by: Gabapentin (Neurontin) 400 mg PO BEDTIME [facility] Last Admin: 02/12/20 20:50 Dose: 400 mg Documented by: Guaifenesin/Codeine Phosphate (Robitussin Ac) 5 ml PO TID PRN PRN Reason: Cough Last Admin: 02/11/20 09:07 Dose: 5 ml Documented by: Hydroxyzine HCl (Atarax) 25 mg PO TID PRN PRN Reason: Itching Ceftriaxone Sodium 1 gm/ (Sodium Chloride) 50 mls @ 100 mls/hr IV Q24H [facility] Last Admin: 02/12/20 16:57 Dose: 100 mls/hr Documented by: Azithromycin 500 mg/ Sodium (Chloride) 250 mls @ 250 mls/hr IV Q24H [facility] Last Admin: 02/12/20 16:57 Dose: 250 mls/hr Documented by: Levothyroxine Sodium (Levothyroxine) 125 mcg PO DAILY@0600 [facility] Last Admin: 02/13/20 05:06 Dose: 125 mcg Documented by: Mometasone Furoate (Asmanex 220 Mcg) 2 puff INH BIDRT [facility] Last Admin: 02/13/20 08:11 Dose: 2 puff Documented by: Morphine Sulfate (Ms Contin) 30 mg PO Q12HR [facility] Last Admin: 02/13/20 08:07 Dose: 30 mg Documented by: Methenamine Hippurate [ Methenamine Hippurate] 1 GmOwn Med 2 gm PO BID [facility] Last Admin: 02/13/20 08:10 Dose: 2 gm Documented by: Omeprazole (Omeprazole) 20 mg PO BIDMEALS [facility] Last Admin: 02/13/20 08:07 Dose: 20 mg Documented by: Ondansetron HCl (Zofran Odt) 4 mg PO Q4H PRN PRN Reason: nausea, able to take PO Oxybutynin Chloride (Oxybutynin) 5 mg PO TID [facility] Last Admin: 02/13/20 08:08 Dose: 5 mg Documented by: Oxycodone HCl (Oxycodone) 10 mg PO Q4H PRN PRN Reason: Pain (moderate 4-6) Last Admin: 02/12/20 11:27 Dose: 10 mg Documented by: Paroxetine HCl (Paxil) 50 mg PO DAILY [facility] Last Admin: 02/13/20 08:08 Dose: 50 mg Documented by: Propranolol HCl (Inderal La) 60 mg PO DAILY [facility] Last Admin: 02/13/20 08:07 Dose: 60 mg Documented by: Sodium Chloride (Saline Flush) 10 ml FLUSH ASDIRECTED PRN PRN Reason: IV Use Last Admin: 02/13/20 08:14 Dose: 10 ml Documented by: Sodium Chloride (Saline Flush) 30 ml FLUSH 2100 [facility] Last Admin: 02/12/20 22:21 Dose: 30 ml Documented by: Discontinued Medications Acetaminophen (Tylenol) 650 mg PO Q4H PRN PRN Reason: Pain (Mild 1-3)/fever Carbidopa/Levodopa (Sinemet Cr 25-100 Mg) 1 tab PO BEDTIME [facility] Last Admin: 02/08/20 21:12 Dose: 1 tab Documented by: Gabapentin (Neurontin) 400 mg PO TID [facility] Last Admin: 02/12/20 14:19 Dose: Not Given Documented by: Gabapentin (Neurontin) 400 mg PO TID [facility] Sodium Chloride (Normal Saline) 1,000 mls @ 75 mls/hr IV ASDIRECTED [facility] Last Admin: 02/09/20 06:03 Dose: 75 mls/hr Documented by: Remdesivir 200 mg/ Sodium (Chloride) 210 mls @ 210 mls/hr IV ONETIME ONE Stop: 02/08/20 20:59 Last Infusion: 02/08/20 22:51 Dose: Infused Documented by: Remdesivir 100 mg/ Sodium (Chloride) 230 mls @ 230 mls/hr IV Q24H [facility] Stop: 02/12/20 20:59 Last Admin: 02/11/20 20:31 Dose: 230 mls/hr Documented by: Sterile Water (Sterile Water For Injection) Confirm Administered Dose 20 mls @ as directed .ROUTE .STK-MED ONE Stop: 02/11/20 19:58 Last Admin: 02/11/20 20:25 Dose: Not Given Documented by: Remdesivir 100 mg/ Sodium (Chloride) 100 mls @ 100 mls/hr IV Q24H [facility] Last Infusion: 02/12/20 22:19 Dose: Infused Documented by: Iopamidol (Isovue-370 (76%)) 100 ml IVPUSH ONETIME ONE Stop: 02/08/20 13:58 Last Admin: 02/08/20 13:58 Dose: 79 ml Documented by: Levothyroxine Sodium (Levothyroxine) 125 mcg PO ACBREAKFAST [facility] Non-Formulary Medication (Ondansetron Hcl) 4 mg PO Q8HR PRN PRN Reason: Nausea/Vomiting Non-Formulary Medication (Oxycodone Hcl) 10 mg PO TID [facility] Ondansetron HCl (Zofran) 4 mg IVPUSH ONETIME ONE Stop: 02/08/20 12:42 Last Admin: 02/08/20 12:49 Dose: 4 mg Documented by: Oxybutynin Chloride (Oxybutynin Er) 15 mg PO DAILY [facility] Paroxetine HCl (Paxil) 20 mg PO DAILY [facility] - Exam Quality Assessment: Supplemental Oxygen (40 L of oxygen 93% FiO2 Via nasal cannula.) General: Alert, Oriented, Cooperative, Moderate Distress HEENT: Pupils Equal, Pupils Reactive Neck: Supple, Trachea Midline Lungs: Rales Cardiovascular: Regular Rate, Regular Rhythm GI/Abdominal Exam: Normal Bowel Sounds, Soft, Non-Tender Extremities: Other (Chronic stasis changes of bilateral lower extremities. Varicose veins.) Skin: Warm, Dry, Intact Neurological: No New Focal Deficit Psy/Mental Status: Alert, Normal Affect, Normal Mood Sepsis Event Note - Evaluation Sepsis Screening Result: No Definite Risk - Focused Exam Vital Signs: Vital Signs Temp Pulse Resp BP BP Pulse Ox Pulse Ox 02/13/20 11:10 91 L 02/13/20 07:59 97.7 F 59 L 22 H 159/59 H 91 L 02/13/20 04:59 97.7 F 57 L 20 150/76 H 93 L 02/13/20 01:56 97.3 F 58 L 20 128/44 L 93 L 02/13/20 00:00 20 92 L - Problem List Review Problem List Initiated/Reviewed/Updated: Yes - Plan Plan:: Patient is 65-year-old female with medical history significant for hypertension, recurrent UTI, stasis edema, depression, hypothyroidism, JONATAN, morbid obesity, B12 deficiency, and osteoarthritis who is admitted for COVID-19 pneumonia with acute respiratory failure with hypoxia. Patient tested positive for COVID-19 pneumonia on 02/08/2020. #Acute respiratory failure with hypoxia #COVID-19 pneumonia Continue supplemental oxygen, titrate to SPO2 greater than 92% Patient still requiring high flow nasal cannula 40 L on 93% FiO2 Incentive spirometer Continue Rocephin and azithromycin Continue dexamethasone #Anxiety depression Continue home medications #JONATAN Now on high flow nasal cannula #Osteoarthritis Continue home medications #Morbid obesity: BMI of 41.5 Weight loss counseling DVT prophylaxis: Lovenox GI prophylaxis: General diet CODE STATUS: Full code per patient preference
[2020-02-13] MEDS: oxyCODONE 5 MG Tab PO PRN ×2 (12:07→22:04)
[2020-02-13] MEDS: cefTRIAXone 1 GM in Sodium Chloride 0.9% 50 ML IV SCH (16:36)
[2020-02-13] MEDS: Azithromycin 500 MG in Sodium Chloride 0.9% 250 ML IV SCH (17:12)
[2020-02-13] MEDS: Carbidopa/Levodopa 25-100 MG Tab PO SCH (22:03)
[2020-02-13] MEDS: Gabapentin 400 MG Cap PO SCH (22:04)
[2020-02-13] MEDS: Sodium Chloride 0.9% 10 ML Syringe FLUSH SCH (22:14)
[2020-02-13] MEDS: Codeine/guaiFENesin 10-100 MG/5 ML Syrup 5 ML Cup PO PRN (22:19)
[2020-02-14] MEDS: Levothyroxine 125 MCG Tab PO SCH (05:38)
[2020-02-14] MEDS: Albuterol 6.7 GM Inhaler INH SCH ×5 (05:41→20:25)
[2020-02-14] MEDS: Mometasone Furoate Powder 220 MCG/Puff 14 Dose Inhaler INH SCH ×3 (05:42→17:20)
[2020-02-14] MEDS: Enoxaparin 40 MG/0.4 ML Syringe SUBCUT SCH (08:00)
[2020-02-14] MEDS: Oxybutynin 5 MG Tab PO SCH ×3 (08:00→20:23)
[2020-02-14] MEDS: PARoxetine 20 MG Tab PO SCH (08:01)
[2020-02-14] MEDS: Morphine 30 MG Tab.ER PO SCH ×2 (08:03→20:24)
[2020-02-14] MEDS: Dexamethasone 4 MG/ML SDV IVPUSH SCH (08:04)
[2020-02-14] MEDS: Omeprazole 20 MG Cap.CR PO SCH ×2 (08:04→17:19)
[2020-02-14] MEDS: METHENAMINE HIPPURATE 1 GM PO SCH ×2 (08:05→20:23)
[2020-02-14] MEDS: Sodium Chloride 0.9% 10 ML Syringe FLUSH PRN (08:05)
--- NOTE | 2020-02-14 09:55 | PCM.PN ---
- General Info Date of Service: 02/14/20 Admission Dx/Problem (Free Text): COVID-19 pneumonia with respiratory failure. Subjective Update: No acute events overnight. Reports that she continues to have cough with scant sputum production. Still short of breath. Has been trying to use incentive spirometer. Denies fevers, chills, chest pain, nausea, vomiting, diarrhea, constipation, dysuria, hematuria, headache, or any new changes. - Patient Data Vitals - Most Recent: Last Vital Signs Temp 99 F 02/14/20 08:15 Pulse 53 L 02/14/20 08:15 Resp 26 H 02/14/20 08:15 BP 130/86 02/14/20 08:15 Pulse Ox 97 02/14/20 08:15 Weight - Most Recent: 242 lb I&O - Last 24 Hours: Intake & Output 02/13/20 02/14/20 02/14/20 22:59 06:59 14:59 Output Total 400 300 Balance -400 -300 [facility] Results Last 24 Hours: Microbiology 02/08/20 12:25 Aerobic Blood Culture - Final Blood - Venous - Iv Start NO GROWTH AFTER 5 DAYS Anaerobic Blood Culture - Final NO GROWTH AFTER 5 DAYS Med Orders - Current: Current Medications Acetaminophen (Tylenol) 650 mg PO Q8H PRN PRN Reason: Pain (Mild 1-3)/fever Albuterol (Proventil Hfa) 0 gm INH QIDRT [facility] Last Admin: 02/14/20 06:24 Dose: Not Given Documented by: Benzonatate (Tessalon Perles) 100 mg PO QID PRN PRN Reason: Cough Last Admin: 02/11/20 09:07 Dose: 100 mg Documented by: Carbidopa/Levodopa (Sinemet 25-100 Mg) 1 tab PO BEDTIME [facility] Last Admin: 02/13/20 22:03 Dose: 1 tab Documented by: Dexamethasone (Decadron) 6 mg IVPUSH DAILY [facility] Stop: 02/17/20 09:01 Last Admin: 02/14/20 08:04 Dose: 6 mg Documented by: Docusate Sodium (Colace) 100 mg PO BID PRN PRN Reason: Constipation Last Admin: 02/11/20 09:02 Dose: 100 mg Documented by: Enoxaparin Sodium (Lovenox) 40 mg SUBCUT DAILY [facility] Last Admin: 02/14/20 08:00 Dose: 40 mg Documented by: Gabapentin (Neurontin) 400 mg PO BEDTIME [facility] Last Admin: 02/13/20 22:04 Dose: 400 mg Documented by: Guaifenesin/Codeine Phosphate (Robitussin Ac) 5 ml PO TID PRN PRN Reason: Cough Last Admin: 02/13/20 22:19 Dose: 5 ml Documented by: Hydroxyzine HCl (Atarax) 25 mg PO TID PRN PRN Reason: Itching Ceftriaxone Sodium 1 gm/ (Sodium Chloride) 50 mls @ 100 mls/hr IV Q24H [facility] Last Admin: 02/13/20 16:36 Dose: 100 mls/hr Documented by: Azithromycin 500 mg/ Sodium (Chloride) 250 mls @ 250 mls/hr IV Q24H [facility] Last Infusion: 02/13/20 18:27 Dose: Infused Documented by: Levothyroxine Sodium (Levothyroxine) 125 mcg PO DAILY@0600 [facility] Last Admin: 02/14/20 05:38 Dose: 125 mcg Documented by: Mometasone Furoate (Asmanex 220 Mcg) 2 puff INH BIDRT [facility] Last Admin: 02/14/20 06:24 Dose: Not Given Documented by: Morphine Sulfate (Ms Contin) 30 mg PO Q12HR [facility] Last Admin: 02/14/20 08:03 Dose: 30 mg Documented by: Methenamine Hippurate [ Methenamine Hippurate] 1 GmOwn Med 2 gm PO BID [facility] Last Admin: 02/14/20 08:05 Dose: 2 gm Documented by: Omeprazole (Omeprazole) 20 mg PO BIDMEALS [facility] Last Admin: 02/14/20 08:04 Dose: 20 mg Documented by: Ondansetron HCl (Zofran Odt) 4 mg PO Q4H PRN PRN Reason: nausea, able to take PO Oxybutynin Chloride (Oxybutynin) 5 mg PO TID [facility] Last Admin: 02/14/20 08:00 Dose: 5 mg Documented by: Oxycodone HCl (Oxycodone) 10 mg PO Q4H PRN PRN Reason: Pain (moderate 4-6) Last Admin: 02/13/20 22:04 Dose: 10 mg Documented by: Paroxetine HCl (Paxil) 50 mg PO DAILY [facility] Last Admin: 02/14/20 08:01 Dose: 50 mg Documented by: Propranolol HCl (Inderal La) 60 mg PO DAILY [facility] Last Admin: 02/13/20 08:07 Dose: 60 mg Documented by: Sodium Chloride (Saline Flush) 10 ml FLUSH ASDIRECTED PRN PRN Reason: IV Use Last Admin: 02/14/20 08:05 Dose: 10 ml Documented by: Discontinued Medications Acetaminophen (Tylenol) 650 mg PO Q4H PRN PRN Reason: Pain (Mild 1-3)/fever Carbidopa/Levodopa (Sinemet Cr 25-100 Mg) 1 tab PO BEDTIME [facility] Last Admin: 02/08/20 21:12 Dose: 1 tab Documented by: Gabapentin (Neurontin) 400 mg PO TID [facility] Last Admin: 02/12/20 14:19 Dose: Not Given Documented by: Gabapentin (Neurontin) 400 mg PO TID [facility] Sodium Chloride (Normal Saline) 1,000 mls @ 75 mls/hr IV ASDIRECTED [facility] Last Admin: 02/09/20 06:03 Dose: 75 mls/hr Documented by: Remdesivir 200 mg/ Sodium (Chloride) 210 mls @ 210 mls/hr IV ONETIME ONE Stop: 02/08/20 20:59 Last Infusion: 02/08/20 22:51 Dose: Infused Documented by: Remdesivir 100 mg/ Sodium (Chloride) 230 mls @ 230 mls/hr IV Q24H [facility] Stop: 02/12/20 20:59 Last Admin: 02/11/20 20:31 Dose: 230 mls/hr Documented by: Sterile Water (Sterile Water For Injection) Confirm Administered Dose 20 mls @ as directed .ROUTE .STK-MED ONE Stop: 02/11/20 19:58 Last Admin: 02/11/20 20:25 Dose: Not Given Documented by: Remdesivir 100 mg/ Sodium (Chloride) 100 mls @ 100 mls/hr IV Q24H [facility] Last Infusion: 02/12/20 22:19 Dose: Infused Documented by: Iopamidol (Isovue-370 (76%)) 100 ml IVPUSH ONETIME ONE Stop: 02/08/20 13:58 Last Admin: 02/08/20 13:58 Dose: 79 ml Documented by: Levothyroxine Sodium (Levothyroxine) 125 mcg PO ACBREAKFAST [facility] Non-Formulary Medication (Ondansetron Hcl) 4 mg PO Q8HR PRN PRN Reason: Nausea/Vomiting Non-Formulary Medication (Oxycodone Hcl) 10 mg PO TID [facility] Ondansetron HCl (Zofran) 4 mg IVPUSH ONETIME ONE Stop: 02/08/20 12:42 Last Admin: 02/08/20 12:49 Dose: 4 mg Documented by: Oxybutynin Chloride (Oxybutynin Er) 15 mg PO DAILY [facility] Paroxetine HCl (Paxil) 20 mg PO DAILY [facility] Sodium Chloride (Saline Flush) 30 ml FLUSH 2099 [facility] Last Admin: 02/13/20 22:14 Dose: Not Given Documented by: - Exam Quality Assessment: Supplemental Oxygen General: Alert, Oriented HEENT: Pupils Equal, Pupils Reactive, Mucous Membr. Moist/[place] Neck: Supple Lungs: Rales (Bilateral. Shallow breaths. ) Cardiovascular: Regular Rate, Regular Rhythm GI/Abdominal Exam: Normal Bowel Sounds, Soft, Non-Tender, No Distention Extremities: Normal Inspection, Non-Tender, No Pedal Edema Skin: Warm, Dry, Intact Neurological: No New Focal Deficit Psy/Mental Status: Alert, Normal Affect, Normal Mood Sepsis Event Note - Evaluation Sepsis Screening Result: No Definite Risk - Focused Exam Vital Signs: Vital Signs Temp Pulse Resp BP Pulse Ox 02/14/20 08:15 99 F 53 L 26 H 130/86 97 02/14/20 04:00 97.5 F 53 L 24 H 129/46 L 92 L 02/13/20 23:30 97.5 F 57 L 24 H 149/57 H 95 - Problem List Review Problem List Initiated/Reviewed/Updated: Yes - My Orders Last 24 Hours: My Active Orders 02/13/20 19:36 RT BiPAP/CPAP [RC] ASDIRECTED 02/14/20 08:15 BASIC METABOLIC PANEL,BMP [CHEM] DAILY CBC W/O DIFF,HEMOGRAM [HEME] DAILY D-DIMER QUANTITATIVE [COAG] DAILY MAGNESIUM [CHEM] DAILY PHOSPHORUS [CHEM] DAILY 02/15/20 05:11 CRP [C-REACTIVE PROTEIN] [CHEM] AM - Plan Plan:: Patient is 65-year-old female with medical history significant for hypertension, recurrent UTI, stasis edema, depression, hypothyroidism, JONATAN, morbid obesity, B12 deficiency, and osteoarthritis who is admitted for COVID-19 pneumonia with acute respiratory failure with hypoxia. Patient tested positive for COVID-19 pneumonia on 02/08/2020. #Acute respiratory failure with hypoxia #COVID-19 pneumonia Continue supplemental oxygen, titrate to SPO2 greater than 92% Patient still requiring high flow nasal cannula 40 L on 93% FiO2 Incentive spirometer Continue Rocephin and azithromycin Continue dexamethasone #Anxiety depression Continue home medications #JONATAN Now on high flow nasal cannula #Osteoarthritis Continue home medications #Morbid obesity: BMI of 41.5 Weight loss counseling DVT prophylaxis: Lovenox GI prophylaxis: General diet CODE STATUS: Full code per patient preference
[2020-02-14] MEDS: Codeine/guaiFENesin 10-100 MG/5 ML Syrup 5 ML Cup PO PRN ×2 (10:04→21:25)
[2020-02-14] MEDS: Propranolol 60 MG Cap.ER PO SCH (10:05)
[2020-02-14] MEDS: oxyCODONE 5 MG Tab PO PRN ×2 (10:05→21:25)
[2020-02-14 10:18] LABS: CHLORIDE,CL 104 mmol/L (98-107); SODIUM,NA 138 mmol/L (136-145)
[2020-02-14] MEDS: cefTRIAXone 1 GM in Sodium Chloride 0.9% 50 ML IV SCH (16:11)
[2020-02-14] MEDS: Azithromycin 500 MG in Sodium Chloride 0.9% 250 ML IV SCH (16:49)
[2020-02-14] MEDS: Gabapentin 400 MG Cap PO SCH (20:23)
[2020-02-14] MEDS: Carbidopa/Levodopa 25-100 MG Tab PO SCH (20:24)
[2020-02-15] MEDS: oxyCODONE 5 MG Tab PO PRN ×2 (03:07→12:24)
[2020-02-15] MEDS: Levothyroxine 125 MCG Tab PO SCH (06:04)
[2020-02-15] MEDS: Albuterol 6.7 GM Inhaler INH SCH ×4 (06:09→22:14)
[2020-02-15] MEDS: Mometasone Furoate Powder 220 MCG/Puff 14 Dose Inhaler INH SCH ×2 (06:09→17:28)
[2020-02-15] MEDS: Morphine 30 MG Tab.ER PO SCH ×2 (09:04→22:10)
[2020-02-15] MEDS: PARoxetine 20 MG Tab PO SCH (09:04)
[2020-02-15] MEDS: Propranolol 60 MG Cap.ER PO SCH (09:04)
[2020-02-15] MEDS: Dexamethasone 4 MG/ML SDV IVPUSH SCH (09:05)
[2020-02-15] MEDS: Oxybutynin 5 MG Tab PO SCH ×3 (09:05→22:12)
[2020-02-15] MEDS: Omeprazole 20 MG Cap.CR PO SCH ×2 (09:08→17:27)
[2020-02-15] MEDS: Enoxaparin 40 MG/0.4 ML Syringe SUBCUT SCH (09:09)
[2020-02-15] MEDS: METHENAMINE HIPPURATE 1 GM PO SCH ×2 (09:10→22:13)
[2020-02-15] MEDS ORDERED: Furosemide 40 MG/4 ML VIAL IVPUSH ONE (11:00)
--- NOTE | 2020-02-15 11:03 | PCM.PN ---
- General Info Date of Service: 02/15/20 Admission Dx/Problem (Free Text): COVID-19 pneumonia with respiratory failure. Subjective Update: No acute events overnight. Reports cough is improved. Still short of breath. Has been trying to use incentive spirometer. Denies fevers, chills, chest pain, nausea, vomiting, diarrhea, constipation, dysuria, hematuria, headache, or any new changes. - Patient Data Vitals - Most Recent: Last Vital Signs Temp 99 F 02/15/20 09:10 Pulse 74 02/15/20 09:10 Resp 24 H 02/15/20 09:10 BP 114/42 L 02/15/20 09:10 Pulse Ox 91 L 02/15/20 09:17 Weight - Most Recent: 242 lb I&O - Last 24 Hours: Intake & Output 02/14/20 02/15/20 02/15/20 22:59 06:59 14:59 Intake Total 305 60 Output Total 325 425 Balance -20 -365 Lab Results Last 24 Hours: Laboratory Results - last 24 hr 02/15/20 Range/Units 06:12 C-Reactive Protein 2.1 H (0.0-0.9) mg/dL Med Orders - Current: Current Medications Acetaminophen (Tylenol) 650 mg PO Q8H PRN PRN Reason: Pain (Mild 1-3)/fever Albuterol (Proventil Hfa) 0 gm INH QIDRT [facility] Last Admin: 02/15/20 06:09 Dose: 2 puff Documented by: Benzonatate (Tessalon Perles) 100 mg PO QID PRN PRN Reason: Cough Last Admin: 02/11/20 09:07 Dose: 100 mg Documented by: Carbidopa/Levodopa (Sinemet 25-100 Mg) 1 tab PO BEDTIME [facility] Last Admin: 02/14/20 20:24 Dose: 1 tab Documented by: Dexamethasone (Decadron) 6 mg IVPUSH DAILY [facility] Stop: 02/17/20 09:01 Last Admin: 02/15/20 09:05 Dose: 6 mg Documented by: Docusate Sodium (Colace) 100 mg PO BID PRN PRN Reason: Constipation Last Admin: 02/11/20 09:02 Dose: 100 mg Documented by: Enoxaparin Sodium (Lovenox) 40 mg SUBCUT DAILY [facility] Last Admin: 02/15/20 09:09 Dose: 40 mg Documented by: Gabapentin (Neurontin) 400 mg PO BEDTIME [facility] Last Admin: 02/14/20 20:23 Dose: 400 mg Documented by: Guaifenesin/Codeine Phosphate (Robitussin Ac) 5 ml PO TID PRN PRN Reason: Cough Last Admin: 02/14/20 21:25 Dose: 5 ml Documented by: Hydroxyzine HCl (Atarax) 25 mg PO TID PRN PRN Reason: Itching Ceftriaxone Sodium 1 gm/ (Sodium Chloride) 50 mls @ 100 mls/hr IV Q24H [facility] Last Admin: 02/14/20 16:11 Dose: 100 mls/hr Documented by: Azithromycin 500 mg/ Sodium (Chloride) 250 mls @ 250 mls/hr IV Q24H [facility] Last Infusion: 02/14/20 17:53 Dose: Infused Documented by: Levothyroxine Sodium (Levothyroxine) 125 mcg PO DAILY@0600 [facility] Last Admin: 02/15/20 06:04 Dose: 125 mcg Documented by: Mometasone Furoate (Asmanex 220 Mcg) 2 puff INH BIDRT [facility] Last Admin: 02/15/20 06:09 Dose: 2 puff Documented by: Morphine Sulfate (Ms Contin) 30 mg PO Q12HR [facility] Last Admin: 02/15/20 09:04 Dose: 30 mg Documented by: Methenamine Hippurate [ Methenamine Hippurate] 1 GmOwn Med 2 gm PO BID [facility] Last Admin: 02/15/20 09:10 Dose: 2 gm Documented by: Omeprazole (Omeprazole) 20 mg PO BIDMEALS [facility] Last Admin: 02/15/20 09:08 Dose: 20 mg Documented by: Ondansetron HCl (Zofran Odt) 4 mg PO Q4H PRN PRN Reason: nausea, able to take PO Oxybutynin Chloride (Oxybutynin) 5 mg PO TID [facility] Last Admin: 02/15/20 09:05 Dose: 5 mg Documented by: Oxycodone HCl (Oxycodone) 10 mg PO Q4H PRN PRN Reason: Pain (moderate 4-6) Last Admin: 02/15/20 03:07 Dose: 10 mg Documented by: Paroxetine HCl (Paxil) 50 mg PO DAILY [facility] Last Admin: 02/15/20 09:04 Dose: 50 mg Documented by: Propranolol HCl (Inderal La) 60 mg PO DAILY [facility] Last Admin: 02/15/20 09:04 Dose: Not Given Documented by: Sodium Chloride (Saline Flush) 10 ml FLUSH ASDIRECTED PRN PRN Reason: IV Use Last Admin: 02/14/20 08:05 Dose: 10 ml Documented by: Discontinued Medications Acetaminophen (Tylenol) 650 mg PO Q4H PRN PRN Reason: Pain (Mild 1-3)/fever Carbidopa/Levodopa (Sinemet Cr 25-100 Mg) 1 tab PO BEDTIME [facility] Last Admin: 02/08/20 21:12 Dose: 1 tab Documented by: Gabapentin (Neurontin) 400 mg PO TID [facility] Last Admin: 02/12/20 14:19 Dose: Not Given Documented by: Gabapentin (Neurontin) 400 mg PO TID [facility] Sodium Chloride (Normal Saline) 1,000 mls @ 75 mls/hr IV ASDIRECTED [facility] Last Admin: 02/09/20 06:03 Dose: 75 mls/hr Documented by: Remdesivir 200 mg/ Sodium (Chloride) 210 mls @ 210 mls/hr IV ONETIME ONE Stop: 02/08/20 20:59 Last Infusion: 02/08/20 22:51 Dose: Infused Documented by: Remdesivir 100 mg/ Sodium (Chloride) 230 mls @ 230 mls/hr IV Q24H [facility] Stop: 02/12/20 20:59 Last Admin: 02/11/20 20:31 Dose: 230 mls/hr Documented by: Sterile Water (Sterile Water For Injection) Confirm Administered Dose 20 mls @ as directed .ROUTE .STK-MED ONE Stop: 02/11/20 19:58 Last Admin: 02/11/20 20:25 Dose: Not Given Documented by: Remdesivir 100 mg/ Sodium (Chloride) 100 mls @ 100 mls/hr IV Q24H [facility] Last Infusion: 02/12/20 22:19 Dose: Infused Documented by: Iopamidol (Isovue-370 (76%)) 100 ml IVPUSH ONETIME ONE Stop: 02/08/20 13:58 Last Admin: 02/08/20 13:58 Dose: 79 ml Documented by: Levothyroxine Sodium (Levothyroxine) 125 mcg PO ACBREAKFAST [facility] Non-Formulary Medication (Ondansetron Hcl) 4 mg PO Q8HR PRN PRN Reason: Nausea/Vomiting Non-Formulary Medication (Oxycodone Hcl) 10 mg PO TID [facility] Ondansetron HCl (Zofran) 4 mg IVPUSH ONETIME ONE Stop: 02/08/20 12:42 Last Admin: 02/08/20 12:49 Dose: 4 mg Documented by: Oxybutynin Chloride (Oxybutynin Er) 15 mg PO DAILY [facility] Paroxetine HCl (Paxil) 20 mg PO DAILY [facility] Sodium Chloride (Saline Flush) 30 ml FLUSH 2099 [facility] Last Admin: 02/13/20 22:14 Dose: Not Given Documented by: - Exam Quality Assessment: Supplemental Oxygen (50L via high flow canula at 85% FiO2) General: Alert, Oriented, Cooperative, Moderate Distress HEENT: Pupils Equal, Pupils Reactive, Mucous Membr. Moist/[place] Neck: Supple, Trachea Midline Lungs: Rales Cardiovascular: Regular Rate, Regular Rhythm, No Murmurs GI/Abdominal Exam: Normal Bowel Sounds, Soft, Non-Tender Extremities: Normal Inspection, Non-Tender, No Pedal Edema Skin: Warm, Dry, Intact Neurological: No New Focal Deficit Psy/Mental Status: Alert, Normal Affect, Normal Mood Sepsis Event Note - Evaluation Sepsis Screening Result: No Definite Risk - Focused Exam Vital Signs: Vital Signs Temp Pulse Resp BP Pulse Ox 02/15/20 09:17 91 L 02/15/20 09:10 99 F 74 24 H 114/42 L 84 L 02/15/20 03:04 97.3 F 24 H 133/45 L 95 02/14/20 23:07 97.8 F 57 L 24 H 138/51 L 92 L - Problem List Review Problem List Initiated/Reviewed/Updated: Yes - My Orders Last 24 Hours: My Active Orders 02/15/20 11:00 Furosemide [Lasix] 40 mg IVPUSH NOW ONE 02/16/20 05:11 BASIC METABOLIC PANEL,BMP [CHEM] AM CBC W/O DIFF,HEMOGRAM [HEME] AM D-DIMER QUANTITATIVE [COAG] AM MAGNESIUM [CHEM] AM PHOSPHORUS [CHEM] AM - Plan Plan:: Patient is 65-year-old female with medical history significant for hypertension, recurrent UTI, stasis edema, depression, hypothyroidism, JONATAN, morbid obesity, B12 deficiency, and osteoarthritis who is admitted for COVID-19 pneumonia with acute respiratory failure with hypoxia. Patient tested positive for COVID-19 pneumonia on 02/08/2020. #Acute respiratory failure with hypoxia #COVID-19 pneumonia Continue supplemental oxygen, titrate to SPO2 of 88 to 92% Patient still requiring high flow nasal cannula 50 L on 85% FiO2 Incentive spirometer Continue Rocephin and azithromycin Continue dexamethasone Trial of Lasix #Anxiety depression Continue home medications #JONATAN Now on high flow nasal cannula #Osteoarthritis Continue home medications #Morbid obesity: BMI of 41.5 Weight loss counseling DVT prophylaxis: Lovenox GI prophylaxis: General diet CODE STATUS: Full code per patient preference
[2020-02-15] MEDS: cefTRIAXone 1 GM in Sodium Chloride 0.9% 50 ML IV SCH (16:33)
[2020-02-15] MEDS: Azithromycin 500 MG in Sodium Chloride 0.9% 250 ML IV SCH (17:33)
[2020-02-15] MEDS: Carbidopa/Levodopa 25-100 MG Tab PO SCH (22:11)
[2020-02-15] MEDS: Gabapentin 400 MG Cap PO SCH (22:12)
[2020-02-15] MEDS: Sodium Chloride 0.9% 10 ML Syringe FLUSH PRN (22:17)
[2020-02-16] MEDS: Levothyroxine 125 MCG Tab PO SCH (06:15)
[2020-02-16] MEDS: Mometasone Furoate Powder 220 MCG/Puff 14 Dose Inhaler INH SCH ×2 (06:17→17:15)
[2020-02-16] MEDS: Albuterol 6.7 GM Inhaler INH SCH ×4 (06:18→20:28)
[2020-02-16 06:50] LABS: ANION GAP 12.4 mEq/L (7-13); CHLORIDE,CL 104 mmol/L (98-107); SODIUM,NA 139 mmol/L (136-145)
[2020-02-16] MEDS: Omeprazole 20 MG Cap.CR PO SCH ×2 (08:27→17:15)
[2020-02-16] MEDS: PARoxetine 20 MG Tab PO SCH (08:27)
[2020-02-16] MEDS: Morphine 30 MG Tab.ER PO SCH ×2 (08:28→20:26)
[2020-02-16] MEDS: Enoxaparin 40 MG/0.4 ML Syringe SUBCUT SCH (08:28)
[2020-02-16] MEDS: Dexamethasone 4 MG/ML SDV IVPUSH SCH (08:28)
[2020-02-16] MEDS: Oxybutynin 5 MG Tab PO SCH ×3 (08:29→20:26)
[2020-02-16] MEDS: Propranolol 60 MG Cap.ER PO SCH (08:29)
[2020-02-16] MEDS: METHENAMINE HIPPURATE 1 GM PO SCH ×2 (08:31→20:25)
[2020-02-16] MEDS: oxyCODONE 5 MG Tab PO PRN ×2 (11:09→15:10)
[2020-02-16] MEDS ORDERED: Furosemide 40 MG/4 ML VIAL IVPUSH ONE (11:29)
--- NOTE | 2020-02-16 11:34 | PCM.PN ---
- General Info Date of Service: 02/16/20 Admission Dx/Problem (Free Text): COVID-19 pneumonia with respiratory failure. Subjective Update: No acute events overnight. Reports cough is improved but now productive. Still short of breath. Has been trying to use incentive spirometer. Denies fevers, chills, chest pain, nausea, vomiting, diarrhea, constipation, dysuria, hematuria, headache, or any new changes. - Patient Data Vitals - Most Recent: Last Vital Signs Temp 97.8 F 02/16/20 08:00 Pulse 78 02/16/20 08:00 Resp 28 H 02/16/20 08:00 BP 150/97 H 02/16/20 08:00 Pulse Ox 94 L 02/16/20 08:00 Weight - Most Recent: 242 lb I&O - Last 24 Hours: Intake & Output 02/15/20 02/16/20 02/16/20 22:59 06:59 14:59 Intake Total 308 Output Total 300 400 Balance 8 -400 Lab Results Last 24 Hours: Laboratory Results - last 24 hr 02/16/20 02/16/20 02/16/20 Range/Units 06:08 06:08 06:08 WBC 8.3 (5.0-10.0) 10^3/uL RBC 4.99 (4.2-5.4) 10^6/uL Hgb 14.0 (12.0-16.0) g/dL Hct 43.5 (37.0-47.0) % MCV 87.2 (80-100) fL MCH 28.1 (27.0-34.0) pg MCHC 32.2 L (33.0-35.0) g/dL Plt Count 279 (150-450) 10^3/uL D-Dimer, Quantitative 614 H (0-400) ng/mL Sodium 139 (136-145) mmol/L Potassium 4.4 (3.5-5.1) mmol/L Chloride 104 (98-107) mmol/L Carbon Dioxide 27 (21-32) mmol/L Anion Gap 12.4 (7-13) mEq/L BUN 22 H (7-18) mg/dL Creatinine 0.68 (0.55-1.02) mg/dL Est Cr Clr Drug Dosing 70.27 mL/min Estimated GFR (MDRD) > 60 Glucose 90 (74-99) mg/dL POC Glucose (70-105) mg/dl Calcium 8.2 L (8.5-10.1) mg/dL Phosphorus 4.7 (2.6-4.7) mg/dL Magnesium 2.6 H (1.8-2.4) mg/dL 02/16/20 Range/Units 08:21 WBC (5.0-10.0) 10^3/uL RBC (4.2-5.4) 10^6/uL Hgb (12.0-16.0) g/dL Hct (37.0-47.0) % MCV (80-100) fL MCH (27.0-34.0) pg MCHC (33.0-35.0) g/dL Plt Count (150-450) 10^3/uL D-Dimer, Quantitative (0-400) ng/mL Sodium (136-145) mmol/L Potassium (3.5-5.1) mmol/L Chloride (98-107) mmol/L Carbon Dioxide (21-32) mmol/L Anion Gap (7-13) mEq/L BUN (7-18) mg/dL Creatinine (0.55-1.02) mg/dL Est Cr Clr Drug Dosing mL/min Estimated GFR (MDRD) Glucose (74-99) mg/dL POC Glucose 88 (70-105) mg/dl Calcium (8.5-10.1) mg/dL Phosphorus (2.6-4.7) mg/dL Magnesium (1.8-2.4) mg/dL Med Orders - Current: Current Medications Acetaminophen (Tylenol) 650 mg PO Q8H PRN PRN Reason: Pain (Mild 1-3)/fever Albuterol (Proventil Hfa) 0 gm INH QIDRT [facility] Last Admin: 02/16/20 10:46 Dose: 2 puff Documented by: Benzonatate (Tessalon Perles) 100 mg PO QID PRN PRN Reason: Cough Last Admin: 02/11/20 09:07 Dose: 100 mg Documented by: Carbidopa/Levodopa (Sinemet 25-100 Mg) 1 tab PO BEDTIME [facility] Last Admin: 02/15/20 22:11 Dose: 1 tab Documented by: Dexamethasone (Decadron) 6 mg IVPUSH DAILY [facility] Stop: 02/17/20 09:01 Last Admin: 02/16/20 08:28 Dose: 6 mg Documented by: Docusate Sodium (Colace) 100 mg PO BID PRN PRN Reason: Constipation Last Admin: 02/11/20 09:02 Dose: 100 mg Documented by: Enoxaparin Sodium (Lovenox) 40 mg SUBCUT DAILY [facility] Last Admin: 02/16/20 08:28 Dose: 40 mg Documented by: Furosemide (Lasix) 40 mg IVPUSH NOW ONE Stop: 02/16/20 11:30 Gabapentin (Neurontin) 400 mg PO BEDTIME [facility] Last Admin: 02/15/20 22:12 Dose: 400 mg Documented by: Guaifenesin/Codeine Phosphate (Robitussin Ac) 5 ml PO TID PRN PRN Reason: Cough Last Admin: 02/14/20 21:25 Dose: 5 ml Documented by: Hydroxyzine HCl (Atarax) 25 mg PO TID PRN PRN Reason: Itching Ceftriaxone Sodium 1 gm/ (Sodium Chloride) 50 mls @ 100 mls/hr IV Q24H [facility] Last Admin: 02/15/20 16:33 Dose: 100 mls/hr Documented by: Azithromycin 500 mg/ Sodium (Chloride) 250 mls @ 250 mls/hr IV Q24H [facility] Last Infusion: 02/15/20 18:38 Dose: Infused Documented by: Levothyroxine Sodium (Levothyroxine) 125 mcg PO DAILY@0600 [facility] Last Admin: 02/16/20 06:15 Dose: 125 mcg Documented by: Mometasone Furoate (Asmanex 220 Mcg) 2 puff INH BIDRT [facility] Last Admin: 02/16/20 06:17 Dose: 2 puff Documented by: Morphine Sulfate (Ms Contin) 30 mg PO Q12HR [facility] Last Admin: 02/16/20 08:28 Dose: 30 mg Documented by: Methenamine Hippurate [ Methenamine Hippurate] 1 GmOwn Med 2 gm PO BID [facility] Last Admin: 02/16/20 08:31 Dose: 2 gm Documented by: Omeprazole (Omeprazole) 20 mg PO BIDMEALS [facility] Last Admin: 02/16/20 08:27 Dose: 20 mg Documented by: Ondansetron HCl (Zofran Odt) 4 mg PO Q4H PRN PRN Reason: nausea, able to take PO Oxybutynin Chloride (Oxybutynin) 5 mg PO TID [facility] Last Admin: 02/16/20 08:29 Dose: 5 mg Documented by: Oxycodone HCl (Oxycodone) 10 mg PO Q4H PRN PRN Reason: Pain (moderate 4-6) Last Admin: 02/16/20 11:09 Dose: 10 mg Documented by: Paroxetine HCl (Paxil) 50 mg PO DAILY [facility] Last Admin: 02/16/20 08:27 Dose: 50 mg Documented by: Propranolol HCl (Inderal La) 60 mg PO DAILY [facility] Last Admin: 02/16/20 08:29 Dose: 60 mg Documented by: Sodium Chloride (Saline Flush) 10 ml FLUSH ASDIRECTED PRN PRN Reason: IV Use Last Admin: 02/15/20 22:17 Dose: 10 ml Documented by: Discontinued Medications Acetaminophen (Tylenol) 650 mg PO Q4H PRN PRN Reason: Pain (Mild 1-3)/fever Carbidopa/Levodopa (Sinemet Cr 25-100 Mg) 1 tab PO BEDTIME [facility] Last Admin: 02/08/20 21:12 Dose: 1 tab Documented by: Furosemide (Lasix) 40 mg IVPUSH NOW ONE Stop: 02/15/20 11:01 Last Admin: 02/15/20 12:22 Dose: 40 mg Documented by: Gabapentin (Neurontin) 400 mg PO TID [facility] Last Admin: 02/12/20 14:19 Dose: Not Given Documented by: Gabapentin (Neurontin) 400 mg PO TID [facility] Sodium Chloride (Normal Saline) 1,000 mls @ 75 mls/hr IV ASDIRECTED [facility] Last Admin: 02/09/20 06:03 Dose: 75 mls/hr Documented by: Remdesivir 200 mg/ Sodium (Chloride) 210 mls @ 210 mls/hr IV ONETIME ONE Stop: 02/08/20 20:59 Last Infusion: 02/08/20 22:51 Dose: Infused Documented by: Remdesivir 100 mg/ Sodium (Chloride) 230 mls @ 230 mls/hr IV Q24H [facility] Stop: 02/12/20 20:59 Last Admin: 02/11/20 20:31 Dose: 230 mls/hr Documented by: Sterile Water (Sterile Water For Injection) Confirm Administered Dose 20 mls @ as directed .ROUTE .STK-MED ONE Stop: 02/11/20 19:58 Last Admin: 02/11/20 20:25 Dose: Not Given Documented by: Remdesivir 100 mg/ Sodium (Chloride) 100 mls @ 100 mls/hr IV Q24H [facility] Last Infusion: 02/12/20 22:19 Dose: Infused Documented by: Iopamidol (Isovue-370 (76%)) 100 ml IVPUSH ONETIME ONE Stop: 02/08/20 13:58 Last Admin: 02/08/20 13:58 Dose: 79 ml Documented by: Levothyroxine Sodium (Levothyroxine) 125 mcg PO ACBREAKFAST [facility] Non-Formulary Medication (Ondansetron Hcl) 4 mg PO Q8HR PRN PRN Reason: Nausea/Vomiting Non-Formulary Medication (Oxycodone Hcl) 10 mg PO TID [facility] Ondansetron HCl (Zofran) 4 mg IVPUSH ONETIME ONE Stop: 02/08/20 12:42 Last Admin: 02/08/20 12:49 Dose: 4 mg Documented by: Oxybutynin Chloride (Oxybutynin Er) 15 mg PO DAILY [facility] Paroxetine HCl (Paxil) 20 mg PO DAILY [facility] Sodium Chloride (Saline Flush) 30 ml FLUSH 2100 [facility] Last Admin: 02/13/20 22:14 Dose: Not Given Documented by: - Exam Quality Assessment: Supplemental Oxygen (50L via high flow nasal canula; ) General: Alert, Oriented, Cooperative HEENT: Pupils Equal, Pupils Reactive, Mucous Membr. Moist/[place] Neck: Supple, Trachea Midline Lungs: Rales Cardiovascular: Regular Rate, Regular Rhythm GI/Abdominal Exam: Normal Bowel Sounds, Soft, Non-Tender, No Distention Extremities: Normal Inspection, Non-Tender, No Pedal Edema Peripheral Pulses: 2+: Radial (R) Skin: Warm, Dry, Intact Neurological: No New Focal Deficit Psy/Mental Status: Alert, Normal Affect, Normal Mood Sepsis Event Note - Evaluation Sepsis Screening Result: No Definite Risk - Focused Exam Vital Signs: Vital Signs Temp Pulse Resp BP Pulse Ox 02/16/20 08:00 97.8 F 78 28 H 150/97 H 94 L 02/16/20 06:00 97.9 F 68 16 141/60 H 91 L 02/16/20 00:56 97 F 54 L 24 H 144/54 H 93 L - Problem List Review Problem List Initiated/Reviewed/Updated: Yes - My Orders Last 24 Hours: My Active Orders 02/15/20 11:14 Communication Order [RC] 02/16/20 10:19 Chest 1V Frontal [CR] Routine 02/16/20 11:29 Furosemide [Lasix] 40 mg IVPUSH NOW ONE - Plan Plan:: Patient is 65-year-old female with medical history significant for hypertension, recurrent UTI, stasis edema, depression, hypothyroidism, JONATAN, morbid obesity, B12 deficiency, and osteoarthritis who is admitted for COVID-19 pneumonia with acute respiratory failure with hypoxia. Patient tested positive for COVID-19 pneumonia on 02/08/2020. #Acute respiratory failure with hypoxia #COVID-19 pneumonia Continue supplemental oxygen, titrate to SPO2 of 88 to 92% Patient still requiring high flow nasal cannula 50 L on 85% FiO2 Incentive spirometer Continue Rocephin and azithromycin Continue dexamethasone CXR Repeat [facility] #Anxiety depression Continue home medications #JONATAN Now on high flow nasal cannula #Osteoarthritis Continue home medications #Morbid obesity: BMI of 41.5 Weight loss counseling DVT prophylaxis: Lovenox GI prophylaxis: General diet CODE STATUS: Full code per patient preference
--- NOTE | 2020-02-16 11:42 | CR ---
PROCEDURE INFORMATION: Exam: XR Chest, 1 View Exam date and time: 02/16/2020 11:11 AM Age: 65 years old Clinical indication: Other: Persistent hypoxia TECHNIQUE: Imaging protocol: XR of the chest Views: 1 view. COMPARISON: CT Chest w Cont 02/08/2020 1:46 PM FINDINGS: Lungs: Bilateral patchy perihilar infiltrates. Nodular airspace opacities identified within the right upper lobe, right middle lobe and right lower lobe. Lingular mild ground-glass opacity with dense left retrocardiac appearance. Pleural space: Unremarkable. No pleural effusion. No pneumothorax. Heart/Mediastinum: There is atherosclerotic calcification of the aorta. Unremarkable. No cardiomegaly. Bones/joints: Bilateral acromioclavicular arthropathy. No acute findings visualized. IMPRESSION: Bilateral infiltrates suspicious for pneumonitis in the correct clinical setting.
[2020-02-16] MEDS: cefTRIAXone 1 GM in Sodium Chloride 0.9% 50 ML IV SCH (17:13)
[2020-02-16] MEDS: Azithromycin 500 MG in Sodium Chloride 0.9% 250 ML IV SCH (18:08)
[2020-02-16] MEDS: Sodium Chloride 0.9% 10 ML Syringe FLUSH PRN (19:51)
[2020-02-16] MEDS: Gabapentin 400 MG Cap PO SCH (20:26)
[2020-02-16] MEDS: Carbidopa/Levodopa 25-100 MG Tab PO SCH (20:27)
[2020-02-17] MEDS: Mometasone Furoate Powder 220 MCG/Puff 14 Dose Inhaler INH SCH ×2 (06:47→17:17)
[2020-02-17] MEDS: Levothyroxine 125 MCG Tab PO SCH (06:47)
[2020-02-17] MEDS: Albuterol 6.7 GM Inhaler INH SCH ×4 (06:48→21:09)
[2020-02-17] MEDS: PARoxetine 20 MG Tab PO SCH (08:55)
[2020-02-17] MEDS: Oxybutynin 5 MG Tab PO SCH ×3 (08:55→21:10)
[2020-02-17] MEDS: Morphine 30 MG Tab.ER PO SCH ×2 (08:57→21:10)
[2020-02-17] MEDS: Omeprazole 20 MG Cap.CR PO SCH ×2 (08:57→17:40)
[2020-02-17] MEDS: oxyCODONE 5 MG Tab PO PRN ×3 (08:57→18:06)
[2020-02-17] MEDS: Dexamethasone 4 MG/ML SDV IVPUSH SCH (08:58)
[2020-02-17] MEDS: Enoxaparin 40 MG/0.4 ML Syringe SUBCUT SCH (08:58)
[2020-02-17] MEDS: Propranolol 60 MG Cap.ER PO SCH (08:59)
[2020-02-17] MEDS: METHENAMINE HIPPURATE 1 GM PO SCH ×2 (08:59→21:12)
--- NOTE | 2020-02-17 11:27 | PCM.PN ---
- General Info Date of Service: 02/17/20 Admission Dx/Problem (Free Text): COVID-19 pneumonia with respiratory failure. Subjective Update: No acute events overnight. Reports cough is improved but now productive. Still short of breath but states breathing is improved on 6L of O2 via NC. Has been using incentive spirometer. Denies fevers, chills, chest pain, nausea, vomiting, diarrhea, constipation, dysuria, hematuria, headache, or any new changes. - Patient Data Vitals - Most Recent: Last Vital Signs Temp 97.3 F 02/17/20 08:00 Pulse 68 02/17/20 08:00 Resp 24 H 02/17/20 08:00 BP 141/66 H 02/17/20 08:00 Pulse Ox 86 L 02/17/20 08:00 Weight - Most Recent: 242 lb I&O - Last 24 Hours: Intake & Output 02/16/20 02/17/20 02/17/20 22:59 06:59 14:59 Intake Total 300 200 Output Total 600 250 Balance -300 -250 200 Med Orders - Current: Current Medications Acetaminophen (Tylenol) 650 mg PO Q8H PRN PRN Reason: Pain (Mild 1-3)/fever Albuterol (Proventil Hfa) 0 gm INH QIDRT [facility] Last Admin: 02/17/20 06:48 Dose: 2 puff Documented by: Benzonatate (Tessalon Perles) 100 mg PO QID PRN PRN Reason: Cough Last Admin: 02/11/20 09:07 Dose: 100 mg Documented by: Carbidopa/Levodopa (Sinemet 25-100 Mg) 1 tab PO BEDTIME [facility] Last Admin: 02/16/20 20:27 Dose: 1 tab Documented by: Docusate Sodium (Colace) 100 mg PO BID PRN PRN Reason: Constipation Last Admin: 02/11/20 09:02 Dose: 100 mg Documented by: Enoxaparin Sodium (Lovenox) 40 mg SUBCUT DAILY [facility] Last Admin: 02/17/20 08:58 Dose: 40 mg Documented by: Gabapentin (Neurontin) 400 mg PO BEDTIME [facility] Last Admin: 02/16/20 20:26 Dose: 400 mg Documented by: Guaifenesin/Codeine Phosphate (Robitussin Ac) 5 ml PO TID PRN PRN Reason: Cough Last Admin: 02/14/20 21:25 Dose: 5 ml Documented by: Hydroxyzine HCl (Atarax) 25 mg PO TID PRN PRN Reason: Itching Ceftriaxone Sodium 1 gm/ (Sodium Chloride) 50 mls @ 100 mls/hr IV Q24H [facility] Last Admin: 02/16/20 17:13 Dose: 100 mls/hr Documented by: Azithromycin 500 mg/ Sodium (Chloride) 250 mls @ 250 mls/hr IV Q24H [facility] Last Admin: 02/16/20 18:08 Dose: 250 mls/hr Documented by: Levothyroxine Sodium (Levothyroxine) 125 mcg PO DAILY@0600 [facility] Last Admin: 02/17/20 06:47 Dose: 125 mcg Documented by: Mometasone Furoate (Asmanex 220 Mcg) 2 puff INH BIDRT [facility] Last Admin: 02/17/20 06:47 Dose: 2 puff Documented by: Morphine Sulfate (Ms Contin) 30 mg PO Q12HR [facility] Last Admin: 02/17/20 08:57 Dose: 30 mg Documented by: Methenamine Hippurate [ Methenamine Hippurate] 1 GmOwn Med 2 gm PO BID [facility] Last Admin: 02/17/20 08:59 Dose: 2 gm Documented by: Omeprazole (Omeprazole) 20 mg PO BIDMEALS [facility] Last Admin: 02/17/20 08:57 Dose: 20 mg Documented by: Ondansetron HCl (Zofran Odt) 4 mg PO Q4H PRN PRN Reason: nausea, able to take PO Oxybutynin Chloride (Oxybutynin) 5 mg PO TID [facility] Last Admin: 02/17/20 08:55 Dose: 5 mg Documented by: Oxycodone HCl (Oxycodone) 10 mg PO Q4H PRN PRN Reason: Pain (moderate 4-6) Last Admin: 02/17/20 08:57 Dose: 10 mg Documented by: Paroxetine HCl (Paxil) 50 mg PO DAILY [facility] Last Admin: 02/17/20 08:55 Dose: 50 mg Documented by: Propranolol HCl (Inderal La) 60 mg PO DAILY [facility] Last Admin: 02/17/20 08:59 Dose: 60 mg Documented by: Sodium Chloride (Saline Flush) 10 ml FLUSH ASDIRECTED PRN PRN Reason: IV Use Last Admin: 02/16/20 19:51 Dose: 10 ml Documented by: Discontinued Medications Acetaminophen (Tylenol) 650 mg PO Q4H PRN PRN Reason: Pain (Mild 1-3)/fever Carbidopa/Levodopa (Sinemet Cr 25-100 Mg) 1 tab PO BEDTIME [facility] Last Admin: 02/08/20 21:12 Dose: 1 tab Documented by: Dexamethasone (Decadron) 6 mg IVPUSH DAILY [facility] Stop: 02/17/20 09:01 Last Admin: 02/17/20 08:58 Dose: 6 mg Documented by: Furosemide (Lasix) 40 mg IVPUSH NOW ONE Stop: 02/15/20 11:01 Last Admin: 02/15/20 12:22 Dose: 40 mg Documented by: Furosemide (Lasix) 40 mg IVPUSH NOW ONE Stop: 02/16/20 11:30 Last Admin: 02/16/20 12:29 Dose: 40 mg Documented by: Gabapentin (Neurontin) 400 mg PO TID [facility] Last Admin: 02/12/20 14:19 Dose: Not Given Documented by: Gabapentin (Neurontin) 400 mg PO TID [facility] Sodium Chloride (Normal Saline) 1,000 mls @ 75 mls/hr IV ASDIRECTED [facility] Last Admin: 02/09/20 06:03 Dose: 75 mls/hr Documented by: Remdesivir 200 mg/ Sodium (Chloride) 210 mls @ 210 mls/hr IV ONETIME ONE Stop: 02/08/20 20:59 Last Infusion: 02/08/20 22:51 Dose: Infused Documented by: Remdesivir 100 mg/ Sodium (Chloride) 230 mls @ 230 mls/hr IV Q24H [facility] Stop: 02/12/20 20:59 Last Admin: 02/11/20 20:31 Dose: 230 mls/hr Documented by: Sterile Water (Sterile Water For Injection) Confirm Administered Dose 20 mls @ as directed .ROUTE .STK-MED ONE Stop: 02/11/20 19:58 Last Admin: 02/11/20 20:25 Dose: Not Given Documented by: Remdesivir 100 mg/ Sodium (Chloride) 100 mls @ 100 mls/hr IV Q24H [facility] Last Infusion: 02/12/20 22:19 Dose: Infused Documented by: Iopamidol (Isovue-370 (76%)) 100 ml IVPUSH ONETIME ONE Stop: 02/08/20 13:58 Last Admin: 02/08/20 13:58 Dose: 79 ml Documented by: Levothyroxine Sodium (Levothyroxine) 125 mcg PO ACBREAKFAST [facility] Non-Formulary Medication (Ondansetron Hcl) 4 mg PO Q8HR PRN PRN Reason: Nausea/Vomiting Non-Formulary Medication (Oxycodone Hcl) 10 mg PO TID [facility] Ondansetron HCl (Zofran) 4 mg IVPUSH ONETIME ONE Stop: 02/08/20 12:42 Last Admin: 02/08/20 12:49 Dose: 4 mg Documented by: Oxybutynin Chloride (Oxybutynin Er) 15 mg PO DAILY [facility] Paroxetine HCl (Paxil) 20 mg PO DAILY [facility] Sodium Chloride (Saline Flush) 30 ml FLUSH 2100 [facility] Last Admin: 02/13/20 22:14 Dose: Not Given Documented by: - Exam Quality Assessment: Supplemental Oxygen (weaned down to 6L via NC. ) General: Alert, Oriented, Cooperative HEENT: Pupils Equal, Pupils Reactive, Mucous Membr. Moist/Neche Neck: Supple Lungs: Rales Cardiovascular: Regular Rate, Regular Rhythm GI/Abdominal Exam: Normal Bowel Sounds, Soft, No Organomegaly Extremities: Normal Inspection, Non-Tender, No Pedal Edema Skin: Warm, Dry, Intact, Other (Livedo rash on legs, chronic) Neurological: No New Focal Deficit Psy/Mental Status: Alert, Normal Affect, Normal Mood Sepsis Event Note - Evaluation Sepsis Screening Result: No Definite Risk - Focused Exam Vital Signs: Vital Signs Temp Pulse Resp BP Pulse Ox 02/17/20 08:00 97.3 F 68 24 H 141/66 H 86 L 02/17/20 04:31 96.9 F 52 L 26 H 138/49 L 92 L 02/17/20 01:22 54 L 94 L 02/17/20 00:24 88 L 02/17/20 00:21 96.9 F 56 L 22 H 147/58 H 91 L 02/16/20 23:50 54 L 92 L 02/16/20 23:30 20 96 - Problem List & Annotations (1) Morbid obesity SNOMED Code(s): 319974050 Code(s): E66.01 - MORBID (SEVERE) OBESITY DUE TO EXCESS CALORIES Status: Acute Current Visit: Yes (2) Acute respiratory failure due to COVID-19 SNOMED Code(s): 181104977 Code(s): U07.1 - COVID-19; J96.00 - ACUTE RESPIRATORY FAILURE, UNSP W HYPOXIA OR HYPERCAPNIA Status: Acute Current Visit: Yes (3) Chronic dermatitis SNOMED Code(s): 98668427 Code(s): L30.9 - DERMATITIS, UNSPECIFIED Status: Acute Current Visit: No (4) Hypothyroidism SNOMED Code(s): 48695306 Code(s): E03.9 - HYPOTHYROIDISM, UNSPECIFIED Status: Acute Current Visit: No Qualifiers: Hypothyroidism type: unspecified Qualified Code(s): E03.9 - Hypothyroidism, unspecified (5) Pneumonia due to COVID-19 virus SNOMED Code(s): 563067939618147169 Code(s): U07.1 - COVID-19; J12.89 - OTHER VIRAL PNEUMONIA Status: Acute Current Visit: No (6) Restless leg syndrome SNOMED Code(s): 88574614 Code(s): G25.81 - RESTLESS LEGS SYNDROME Status: Acute Current Visit: No - Problem List Review Problem List Initiated/Reviewed/Updated: Yes - My Orders Last 24 Hours: My Active Orders 02/18/20 05:11 BASIC METABOLIC PANEL,BMP [CHEM] AM C-REACTIVE PROTEIN [CHEM] AM CBC W/O DIFF,HEMOGRAM [HEME] AM D-DIMER QUANTITATIVE [COAG] AM LACTATE DEHYDROGENASE,LDH [CHEM] AM MAGNESIUM [CHEM] AM PHOSPHORUS [CHEM] AM - Plan Plan:: Patient is 65-year-old female with medical history significant for hypertension, recurrent UTI, stasis edema, depression, hypothyroidism, JONATAN, morbid obesity, B12 deficiency, and osteoarthritis who is admitted for COVID-19 pneumonia with acute respiratory failure with hypoxia. Patient tested positive for COVID-19 pneumonia on 02/08/2020. #Acute respiratory failure with hypoxia #COVID-19 pneumonia Continue supplemental oxygen, titrate to SPO2 of 88 to 92% Patient weaned down to 6L of O2 via NC Incentive spirometer Continue Rocephin and azithromycin Continue dexamethasone #Anxiety depression Continue home medications #JONATAN Now on high flow nasal cannula #Osteoarthritis Continue home medications #Morbid obesity: BMI of 41.5 Weight loss counseling DVT prophylaxis: Lovenox GI prophylaxis: General diet CODE STATUS: Full code per patient preference
[2020-02-17] MEDS: cefTRIAXone 1 GM in Sodium Chloride 0.9% 50 ML IV SCH (17:17)
[2020-02-17] MEDS: Azithromycin 500 MG in Sodium Chloride 0.9% 250 ML IV SCH (17:40)
[2020-02-17] MEDS: Sodium Chloride 0.9% 10 ML Syringe FLUSH PRN (19:10)
[2020-02-17] MEDS: Gabapentin 400 MG Cap PO SCH (21:10)
[2020-02-17] MEDS: Carbidopa/Levodopa 25-100 MG Tab PO SCH (21:10)
[2020-02-18] MEDS: oxyCODONE 5 MG Tab PO PRN ×2 (01:10→09:30)
[2020-02-18] MEDS: Levothyroxine 125 MCG Tab PO SCH (06:22)
[2020-02-18] MEDS: Mometasone Furoate Powder 220 MCG/Puff 14 Dose Inhaler INH SCH (06:23)
[2020-02-18] MEDS: Albuterol 6.7 GM Inhaler INH SCH ×2 (06:23→13:32)
[2020-02-18 06:52] LABS: ANION GAP 9.9 mEq/L (7-13); CHLORIDE,CL 101 mmol/L (98-107); SODIUM,NA 137 mmol/L (136-145)
[2020-02-18] MEDS: Omeprazole 20 MG Cap.CR PO SCH (09:26)
[2020-02-18] MEDS: Propranolol 60 MG Cap.ER PO SCH (09:27)
[2020-02-18] MEDS: METHENAMINE HIPPURATE 1 GM PO SCH (09:27)
[2020-02-18] MEDS: Enoxaparin 40 MG/0.4 ML Syringe SUBCUT SCH (09:27)
[2020-02-18] MEDS: Oxybutynin 5 MG Tab PO SCH ×2 (09:28→13:32)
[2020-02-18] MEDS: Morphine 30 MG Tab.ER PO SCH (09:28)
[2020-02-18] MEDS: PARoxetine 20 MG Tab PO SCH (09:29)
--- NOTE | 2020-02-18 10:36 | PCM.DCSUM1 ---
Discharge Summary - Hospital Course Free Text/Narrative:: Patient is 65-year-old female with medical history significant for hypertension, recurrent UTI, stasis edema, depression, hypothyroidism, JONATAN, morbid obesity, B12 deficiency, and osteoarthritis who is admitted for COVID-19 pneumonia with acute respiratory failure with hypoxia. Patient tested positive for COVID-19 pneumonia on 02/08/2020. She was treated with COVID-19 protocol. Required high flow O2 via nasal pillows for several days. She received doses of IV lasix with improvement of respiratory status. Completed 10 days of antibiotics and decadron. Was weaned down to 2L at rest and required 4 L with activity. She is being discharged home to follow up with PCP. Will continue to need O2 at home. She will need home health for O2 management. Diagnosis: Stroke: No - Discharge Data Discharge Date: 02/18/20 Discharge Disposition: Home, Self-Care 01 Condition: Good - Referral to Home Health Primary Care Physician: Jonatan Aragon MD - Discharge Diagnosis/Problem(s) (1) Morbid obesity SNOMED Code(s): 284137818 ICD Code: E66.01 - MORBID (SEVERE) OBESITY DUE TO EXCESS CALORIES Status: Acute Current Visit: Yes (2) Acute respiratory failure due to COVID-19 SNOMED Code(s): 725324418 ICD Code: U07.1 - COVID-19; J96.00 - ACUTE RESPIRATORY FAILURE, UNSP W HYPOXI A OR HYPERCAPNIA Status: Acute Current Visit: Yes (3) Chronic dermatitis SNOMED Code(s): 11738852 ICD Code: L30.9 - DERMATITIS, UNSPECIFIED Status: Acute Current Visit: No (4) Hypothyroidism SNOMED Code(s): 13089137 ICD Code: E03.9 - HYPOTHYROIDISM, UNSPECIFIED Status: Acute Current Visit: No Qualifiers: Hypothyroidism type: unspecified Qualified Code(s): E03.9 - Hypothyroidism, unspecified (5) Pneumonia due to COVID-19 virus SNOMED Code(s): 423573610246513398 ICD Code: U07.1 - COVID-19; J12.89 - OTHER VIRAL PNEUMONIA Status: Acute Current Visit: No (6) Restless leg syndrome SNOMED Code(s): 05070246 ICD Code: G25.81 - RESTLESS LEGS SYNDROME Status: Acute Current Visit: No - Discharge Plan *PRESCRIPTION DRUG MONITORING PROGRAM REVIEWED*: No *COPY OF PRESCRIPTION DRUG MONITORING REPORT IN PATIENT NINA: No Home Medications: Home Meds PARoxetine HCl [Paroxetine HCl] 20 mg PO DAILY 12/20/13 [History] oxyCODONE 10 mg PO TID 12/20/13 [History] Omeprazole 20 mg PO BIDMEALS 12/03/14 [History] PARoxetine HCl [Paroxetine HCl] 30 mg PO DAILY 12/03/14 [History] Propranolol [Inderal LA] 60 mg PO DAILY 12/03/14 [History] Morphine [MS Contin] 30 mg PO Q12HR 10/11/17 [History] Acetaminophen [Tylenol] 650 mg PO Q8H PRN 5 Days #20 tablet 10/13/17 [Rx] Carbidopa/Levodopa [Carbidopa-Levodopa 25-100 Tab] 1 tab PO BEDTIME 02/08/20 [History] Codeine Phosphate/Guaifenesin [Guaifen-Codeine 100-10 mg/5 ml] 5 ml PO TID PRN 02/08/20 [History] Cyanocobalamin (Vitamin B-12) [Vitamin B-12] 1,000 mcg IM ASDIRECTED 02/08/20 [History] Gabapentin [Neurontin] 400 mg PO TID 02/08/20 [History] Levothyroxine 125 mcg PO ACBREAKFAST 02/08/20 [History] Levothyroxine 150 mcg PO ACBREAKFAST 02/08/20 [History] Methenamine Hippurate 2 gm PO BID 02/08/20 [History] Oxybutynin [Oxybutynin ER] 15 mg PO DAILY 02/08/20 [History] hydrOXYzine HCL [Hydroxyzine HCl] 25 mg PO TID PRN 02/08/20 [History] ondansetron HCL [Ondansetron HCl] 4 mg PO Q8HR PRN 02/08/20 [History] Fluticasone/Vilanterol [Breo Ellipta 100-25 MCG Inhalation Kit] 1 inhalation PO DAILY 02/11/20 [History] Oxygen Therapy Mode: Nasal Cannula (2L at rest and 4L with activity.) Patient Handouts: COVID-19 Frequently Asked Questions, COVID-19: How to Protect Yourself and Others - CDC, Infection Prevention in the Home, Prevent the Spread of COVID-19 if You Are Sick - [facility] Referrals: Jonatan Aragon MD [Primary Care Provider] - - Discharge Summary/Plan Comment DC Time >30 min.: Yes - General Info Date of Service: 02/18/20 Admission Dx/Problem (Free Text: COVID-19 pneumonia with respiratory failure. Subjective Update: No acute events overnight. Reports cough is improved. Shortness of breath is improved. Has been using incentive spirometer. Denies fevers, chills, chest pain, nausea, vomiting, diarrhea, constipation, dysuria, hematuria, headache, or any new changes. - Patient Data Vitals - Most Recent: Last Vital Signs Temp 97.7 F 02/18/20 04:00 Pulse 54 L 02/18/20 04:00 Resp 24 H 02/18/20 04:00 BP 145/58 H 02/18/20 04:00 Pulse Ox 92 L 02/18/20 04:00 Weight - Most Recent: 242 lb I&O - Last 24 hours: Intake & Output 02/17/20 02/18/20 02/18/20 22:59 06:59 14:59 Intake Total 400 Output Total 800 Balance -400 Lab Results - Last 24 hrs: Laboratory Results - last 24 hr 02/18/20 02/18/20 02/18/20 Range/Units 06:20 06:20 06:20 WBC 7.4 (5.0-10.0) 10^3/uL RBC 4.88 (4.2-5.4) 10^6/uL Hgb 13.8 (12.0-16.0) g/dL Hct 43.0 (37.0-47.0) % MCV 88.1 (80-100) fL MCH 28.3 (27.0-34.0) pg MCHC 32.1 L (33.0-35.0) g/dL Plt Count 304 (150-450) 10^3/uL D-Dimer, Quantitative 559 H (0-400) ng/mL Sodium 137 (136-145) mmol/L Potassium 3.9 (3.5-5.1) mmol/L Chloride 101 (98-107) mmol/L Carbon Dioxide 30 (21-32) mmol/L Anion Gap 9.9 (7-13) mEq/L BUN 23 H (7-18) mg/dL Creatinine 0.76 (0.55-1.02) mg/dL Est Cr Clr Drug Dosing 62.88 mL/min Estimated GFR (MDRD) > 60 Glucose 90 (74-99) mg/dL Calcium 8.3 L (8.5-10.1) mg/dL Phosphorus 3.7 (2.6-4.7) mg/dL Magnesium 2.5 H (1.8-2.4) mg/dL Lactate Dehydrogenase 236 H (81-234) U/L C-Reactive Protein 0.3 (0.0-0.9) mg/dL Med Orders - Current: Current Medications Acetaminophen (Tylenol) 650 mg PO Q8H PRN PRN Reason: Pain (Mild 1-3)/fever Albuterol (Proventil Hfa) 0 gm INH QIDRT [facility] Last Admin: 02/18/20 06:23 Dose: 2 puff Documented by: Benzonatate (Tessalon Perles) 100 mg PO QID PRN PRN Reason: Cough Last Admin: 02/11/20 09:07 Dose: 100 mg Documented by: Carbidopa/Levodopa (Sinemet 25-100 Mg) 1 tab PO BEDTIME [facility] Last Admin: 02/17/20 21:10 Dose: 1 tab Documented by: Docusate Sodium (Colace) 100 mg PO BID PRN PRN Reason: Constipation Last Admin: 02/11/20 09:02 Dose: 100 mg Documented by: Enoxaparin Sodium (Lovenox) 40 mg SUBCUT DAILY [facility] Last Admin: 02/18/20 09:27 Dose: 40 mg Documented by: Gabapentin (Neurontin) 400 mg PO BEDTIME [facility] Last Admin: 02/17/20 21:10 Dose: 400 mg Documented by: Guaifenesin/Codeine Phosphate (Robitussin Ac) 5 ml PO TID PRN PRN Reason: Cough Last Admin: 02/14/20 21:25 Dose: 5 ml Documented by: Hydroxyzine HCl (Atarax) 25 mg PO TID PRN PRN Reason: Itching Ceftriaxone Sodium 1 gm/ (Sodium Chloride) 50 mls @ 100 mls/hr IV Q24H [facility] Last Admin: 02/17/20 17:17 Dose: 100 mls/hr Documented by: Azithromycin 500 mg/ Sodium (Chloride) 250 mls @ 250 mls/hr IV Q24H [facility] Last Infusion: 02/17/20 19:11 Dose: Infused Documented by: Levothyroxine Sodium (Levothyroxine) 125 mcg PO DAILY@0600 [facility] Last Admin: 02/18/20 06:22 Dose: 125 mcg Documented by: Mometasone Furoate (Asmanex 220 Mcg) 2 puff INH BIDRT [facility] Last Admin: 02/18/20 06:23 Dose: 2 puff Documented by: Morphine Sulfate (Ms Contin) 30 mg PO Q12HR [facility] Last Admin: 02/18/20 09:28 Dose: 30 mg Documented by: Methenamine Hippurate [ Methenamine Hippurate] 1 GmOwn Med 2 gm PO BID [facility] Last Admin: 02/18/20 09:27 Dose: 2 gm Documented by: Omeprazole (Omeprazole) 20 mg PO BIDMEALS [facility] Last Admin: 02/18/20 09:26 Dose: 20 mg Documented by: Ondansetron HCl (Zofran Odt) 4 mg PO Q4H PRN PRN Reason: nausea, able to take PO Oxybutynin Chloride (Oxybutynin) 5 mg PO TID [facility] Last Admin: 02/18/20 09:28 Dose: 5 mg Documented by: Oxycodone HCl (Oxycodone) 10 mg PO Q4H PRN PRN Reason: Pain (moderate 4-6) Last Admin: 02/18/20 09:30 Dose: 10 mg Documented by: Paroxetine HCl (Paxil) 50 mg PO DAILY [facility] Last Admin: 02/18/20 09:29 Dose: 50 mg Documented by: Propranolol HCl (Inderal La) 60 mg PO DAILY [facility] Last Admin: 02/18/20 09:27 Dose: 60 mg Documented by: Sodium Chloride (Saline Flush) 10 ml FLUSH ASDIRECTED PRN PRN Reason: IV Use Last Admin: 02/17/20 19:10 Dose: 10 ml Documented by: Discontinued Medications Acetaminophen (Tylenol) 650 mg PO Q4H PRN PRN Reason: Pain (Mild 1-3)/fever Carbidopa/Levodopa (Sinemet Cr 25-100 Mg) 1 tab PO BEDTIME [facility] Last Admin: 02/08/20 21:12 Dose: 1 tab Documented by: Dexamethasone (Decadron) 6 mg IVPUSH DAILY [facility] Stop: 02/17/20 09:01 Last Admin: 02/17/20 08:58 Dose: 6 mg Documented by: Furosemide (Lasix) 40 mg IVPUSH NOW ONE Stop: 02/15/20 11:01 Last Admin: 02/15/20 12:22 Dose: 40 mg Documented by: Furosemide (Lasix) 40 mg IVPUSH NOW ONE Stop: 02/16/20 11:30 Last Admin: 02/16/20 12:29 Dose: 40 mg Documented by: Gabapentin (Neurontin) 400 mg PO TID [facility] Last Admin: 02/12/20 14:19 Dose: Not Given Documented by: Gabapentin (Neurontin) 400 mg PO TID [facility] Sodium Chloride (Normal Saline) 1,000 mls @ 75 mls/hr IV ASDIRECTED [facility] Last Admin: 02/09/20 06:03 Dose: 75 mls/hr Documented by: Remdesivir 200 mg/ Sodium (Chloride) 210 mls @ 210 mls/hr IV ONETIME ONE Stop: 02/08/20 20:59 Last Infusion: 02/08/20 22:51 Dose: Infused Documented by: Remdesivir 100 mg/ Sodium (Chloride) 230 mls @ 230 mls/hr IV Q24H [facility] Stop: 02/12/20 20:59 Last Admin: 02/11/20 20:31 Dose: 230 mls/hr Documented by: Sterile Water (Sterile Water For Injection) Confirm Administered Dose 20 mls @ as directed .ROUTE .STK-MED ONE Stop: 02/11/20 19:58 Last Admin: 02/11/20 20:25 Dose: Not Given Documented by: Remdesivir 100 mg/ Sodium (Chloride) 100 mls @ 100 mls/hr IV Q24H [facility] Last Infusion: 02/12/20 22:19 Dose: Infused Documented by: Iopamidol (Isovue-370 (76%)) 100 ml IVPUSH ONETIME ONE Stop: 02/08/20 13:58 Last Admin: 02/08/20 13:58 Dose: 79 ml Documented by: Levothyroxine Sodium (Levothyroxine) 125 mcg PO ACBREAKFAST [facility] Non-Formulary Medication (Ondansetron Hcl) 4 mg PO Q8HR PRN PRN Reason: Nausea/Vomiting Non-Formulary Medication (Oxycodone Hcl) 10 mg PO TID [facility] Ondansetron HCl (Zofran) 4 mg IVPUSH ONETIME ONE Stop: 02/08/20 12:42 Last Admin: 02/08/20 12:49 Dose: 4 mg Documented by: Oxybutynin Chloride (Oxybutynin Er) 15 mg PO DAILY [facility] Paroxetine HCl (Paxil) 20 mg PO DAILY [facility] Sodium Chloride (Saline Flush) 30 ml FLUSH 2100 [facility] Last Admin: 02/13/20 22:14 Dose: Not Given Documented by: - Exam Quality Assessment: Reports: Supplemental Oxygen (2L at rest. ) General: Reports: Alert, Oriented, Cooperative, No Acute Distress HEENT: Reports: Pupils Equal Lungs: Reports: Rales (Improved. ) Cardiovascular: Reports: Regular Rate, Regular Rhythm GI/Abdominal Exam: Normal Bowel Sounds, Soft, Non-Tender, No Distention Extremities: Normal Inspection, Non-Tender, No Pedal Edema Skin: Reports: Warm, Dry, Intact, Rash (Livedo rash; chronic) Psy/Mental Status: Reports: Alert, Normal Affect, Normal Mood
[2020-02-18 13:37] VITALS: BP 129/37; PULSE 53
== END 2020-02-18 15:03 | disposition home or self-care (01) | DRG 177 ==
LOC: DL.ED 12:22 → DL.MS 14:31
PROVIDERS: ADMIT Internal Medicine; ATTEND Internal Medicine
PROC: 8E0ZXY6 Isolation (ICD-10-PCS; principal; 2020-02-08)
PROC: XW033E5 Introduction of Remdesivir Anti-infective into Peripheral Vein, Percutaneous Approach, New Technology Group 5 (ICD-10-PCS; 2020-02-08)
PROC: XW033F5 Introduction of Other New Technology Therapeutic Substance into Peripheral Vein, Percutaneous Approach, New Technology Group 5 (ICD-10-PCS; 2020-02-08)
DX: U07.1 COVID-19 (principal); J12.89 Other viral pneumonia; J96.01 Acute respiratory failure with hypoxia; Z79.890 Hormone replacement therapy; Z79.899 Other long term (current) drug therapy; H54.7 Unspecified visual loss; J44.1 Chronic obstructive pulmonary disease with (acute) exacerbation; G47.30 Sleep apnea, unspecified; Z68.41 Body mass index [BMI] 40.0-44.9, adult; I10 Essential (primary) hypertension; G89.29 Other chronic pain; M54.9 Dorsalgia, unspecified; Z87.440 Personal history of urinary (tract) infections; E05.90 Thyrotoxicosis, unspecified without thyrotoxic crisis or storm; F32.9 Major depressive disorder, single episode, unspecified; E03.9 Hypothyroidism, unspecified; G47.33 Obstructive sleep apnea (adult) (pediatric); E66.01 Morbid (severe) obesity due to excess calories; E53.8 Deficiency of other specified B group vitamins; M19.90 Unspecified osteoarthritis, unspecified site; L30.9 Dermatitis, unspecified; G25.81 Restless legs syndrome; F41.9 Anxiety disorder, unspecified; Z88.8 Allergy status to other drugs, medicaments and biological substances; K21.9 Gastro-esophageal reflux disease without esophagitis; D64.9 Anemia, unspecified
CPT/HCPCS: 36415; 71045; 71260; 80048; 80053; 80076; 82962; 83605; 83615; 83735; 83880; 84100; 84484; 85025; 85027; 85379; 86140; 87040; 93005; 93010; 94660; 94762; 96374; 99222; 99231; 99232; 99239; 99284; 99285-25; A9270-GY; J0456; J0696; J1100; J1650; J1940; J2405; J7030; J7050; Q9967; U0002

== ENCOUNTER 2020-10-31 13:37 | Emergency (ER) | payer MEDICARE, MEDICAID ==
--- NOTE | 2020-10-31 15:27 | EDM.PDOC ---
<Pete Schwarz Kady - Last Filed: 10/31/20 16:20> ED HPI GENERAL MEDICAL PROBLEM - General Chief Complaint: Skin Complaint Stated Complaint: CELLULITIS LEFT LEG Time Seen by Provider: 10/31/20 15:30 Source of Information: Reports: Patient History Limitations: Reports: No Limitations - History of Present Illness INITIAL COMMENTS - FREE TEXT/NARRATIVE: 65 y/o F c/o cellulitis in her L calf that started two days ago. She reports that the cellulitis started at her lower leg and then has spread quickly up her leg. She reports that yesterday and today she has felt increasingly fatigued. She reports that she has been taking tylenol and ibuprofen for pain at the site of infection. Denies fever, cough, chills, db, cp, abd pn, pelvic pn and other extremity pain. Hx of cellulitis in the past which has required hospitalization at times. Duration: Day(s): Location: Reports: Lower Extremity, Left Quality: Reports: Sharp Severity: Mild Improves with: Reports: None Worsens with: Reports: None - Related Data Allergies Allergy/AdvReac Type Severity Reaction Status Date / Time naproxen [From Naprosyn] Allergy Rash Verified 10/31/20 14:53 Sulfa (Sulfonamide Allergy Cannot Verified 10/31/20 14:53 Antibiotics) Remember Home Meds: Home Meds PARoxetine HCl [Paroxetine HCl] 20 mg PO DAILY 12/20/13 [History] oxyCODONE 10 mg PO TID 12/20/13 [History] Omeprazole 20 mg PO BIDMEALS 12/03/14 [History] PARoxetine HCl [Paroxetine HCl] 30 mg PO DAILY 12/03/14 [History] Propranolol [Inderal LA] 60 mg PO DAILY 12/03/14 [History] Morphine [MS Contin] 30 mg PO Q12HR 10/11/17 [History] Acetaminophen [Tylenol] 650 mg PO Q8H PRN 5 Days #20 tablet 10/13/17 [Rx] Carbidopa/Levodopa [Carbidopa-Levodopa 25-100 Tab] 1 tab PO BEDTIME 02/08/20 [History] Cyanocobalamin (Vitamin B-12) [Vitamin B-12] 1,000 mcg IM ASDIRECTED 02/08/20 [History] Gabapentin [Neurontin] 400 mg PO TID 02/08/20 [History] Levothyroxine 125 mcg PO ACBREAKFAST 02/08/20 [History] Levothyroxine 150 mcg PO ACBREAKFAST 02/08/20 [History] Methenamine Hippurate 2 gm PO BID 02/08/20 [History] Oxybutynin [Oxybutynin ER] 15 mg PO DAILY 02/08/20 [History] hydrOXYzine HCL [Hydroxyzine HCl] 25 mg PO TID PRN 02/08/20 [History] ondansetron HCL [Ondansetron HCl] 4 mg PO Q8HR PRN 02/08/20 [History] Fluticasone/Vilanterol [Breo Ellipta 100-25 MCG Inhalation Kit] 1 inhalation PO DAILY 02/11/20 [History] Past Medical History HEENT History: Reports: Impaired Vision Cardiovascular History: Reports: Hypertension Respiratory History: Reports: Sleep Apnea Other Respiratory History: doesnt use CPAP Gastrointestinal History: Reports: GERD, Other (See Below) Other Gastrointestinal History: Hernia L side Genitourinary History: Reports: UTI, 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: Musculoskeletal History: Reports: Back Pain, Chronic, Osteoarthritis, Other (See Below) Other Musculoskeletal History: hip and knee pain Neurological History: Reports: None Psychiatric History: Reports: Depression Endocrine/Metabolic History: Reports: Hyperthyroidism, Obesity/BMI 30+ Hematologic History: Reports: Anemia Immunologic History: Reports: None Oncologic (Cancer) History: Reports: None Dermatologic History: Reports: Cellulitis Other Dermatologic History: several tattoos to bilateral arms - Infectious Disease History Infectious Disease History: Reports: MRSA - Past Surgical History Head Surgeries/Procedures: Reports: None HEENT Surgical History: Reports: None Cardiovascular Surgical History: Reports: None Respiratory Surgical History: Reports: None GI Surgical History: Reports: Colonoscopy Female Surgical History: Reports: None Endocrine Surgical History: Reports: None Musculoskeletal Surgical History: Reports: None Social & Family History - Family History Family Medical History: No Pertinent Family History - Caffeine Use Caffeine Use: Reports: Coffee ED ROS GENERAL - Review of Systems Review Of Systems: Comprehensive ROS is negative, except as noted in HPI. ED EXAM, SKIN/RASH Exam: See Below Exam Limited By: No Limitations General Appearance: Alert Respiratory/Chest: No Respiratory Distress, Lungs Clear, Normal Breath Sounds, No Accessory Muscle Use, Chest Non-Tender Cardiovascular: Normal Peripheral Pulses, Regular Rate, Rhythm, No Edema, No Gallop, No JVD, No Murmur, No Rub Skin: Other (cellulitis on lateral left calf from lateral malleolus up to the lateral base of the knee.) Departure - Departure Disposition: Home, Self-Care 01 Clinical Impression: Cellulitis of left lower extremity Cat scratch of left lower leg Qualifiers: Encounter type: initial encounter Qualified Code(s): S80.812A - Abrasion, left lower leg, initial encounter; W55.03XA - Scratched by cat, initial encounter - Discharge Information Instructions: Cellulitis, Adult, [id number] Forms: ED Department Discharge Care Plan Goals: The patient was advised of the examination and lab results during the visit. The patient was given an IV dose of Vancomycin while in the ED. The patient was discharged on Clindamycin (300 mg) #40 to take 1 by mouth 4 times per day for 10 days and Keflex (500 mg) #30 to take 1 by mouth 3 times per day for 10 days. If the patient has any additional symptoms or concerns, the patient should either return to the emergency department or visit her primary care facility. <Hever Agarwal - Last Filed: 10/31/20 17:54> Course - Vital Signs Last Recorded V/S: Last Vital Signs Temp 96.9 F 10/31/20 14:43 Pulse 62 10/31/20 14:43 Resp 18 10/31/20 14:43 BP 164/86 H 10/31/20 14:43 Pulse Ox 97 10/31/20 14:43 - Orders/Labs/Meds Orders: Active Orders 24 hr Category Date Time Status CULTURE BLOOD [BC] Stat Lab 10/31/20 15:12 Received Vancomycin 1.25 gm Med 10/31/20 16:20 Ordered Sodium Chloride 0.9% [Normal Saline (AdvBag)] 250 ml IV ONETIME Medication Orders Vancomycin HCl 1.25 gm/ Sodium (Chloride) 250 mls @ 167 mls/hr IV ONETIME ONE Stop: 10/31/20 17:49 Last Admin: 10/31/20 16:49 Dose: 167 mls/hr Documented by: LAZARO Labs: Laboratory Tests 10/31/20 10/31/20 10/31/20 Range/Units 15:12 15:12 15:12 WBC 7.8 (5.0-10.0) 10^3/uL RBC 5.06 (4.2-5.4) 10^6/uL Hgb 14.3 (12.0-16.0) g/dL Hct 44.9 (37.0-47.0) % MCV 88.7 (80-100) fL MCH 28.3 (27.0-34.0) pg MCHC 31.8 L (33.0-35.0) g/dL Plt Count 290 (150-450) 10^3/uL Neut % (Auto) 64.5 (42.2-75.2) % Lymph % (Auto) 25.0 (20.5-50.1) % [place] % (Auto) 10.0 H (2-8) % Eos % (Auto) 0.0 L (1.0-3.0) % Baso % (Auto) 0.5 (0.0-1.0) % Sodium 141 (136-145) mmol/L Potassium 4.0 (3.5-5.1) mmol/L Chloride 103 (98-107) mmol/L Carbon Dioxide 29 (21-32) mmol/L Anion Gap 13.0 (7-13) mEq/L BUN 10 (7-18) mg/dL Creatinine 0.78 (0.55-1.02) mg/dL Est Cr Clr Drug Dosing 50.96 mL/min Estimated GFR (MDRD) > 60 BUN/Creatinine Ratio 12.8 (No establ ref range) Glucose 99 (70-99) mg/dL Lactic Acid 1.1 (0.4-2.0) mmol/L Calcium 8.7 (8.5-10.1) mg/dL Total Bilirubin 0.6 (0.2-1.0) mg/dL AST 21 (15-37) U/L ALT 35 (14-59) U/L Alkaline Phosphatase 132 H (46-116) U/L Total Protein 7.9 (6.4-8.2) g/dL Albumin 3.2 L (3.4-5.0) g/dL Globulin 4.7 Albumin/Globulin Ratio 0.68 Meds: Medications Generic Name Dose Route Start Last Admin Trade Name Freq PRN Reason Stop Dose Admin Vancomycin HCl 1.25 gm/ Sodium 250 mls @ 167 mls/hr 10/31/20 16:20 10/31/20 16:49 Chloride IV 10/31/20 17:49 167 mls/hr ONETIME ONE Administration Departure - Departure Time of Disposition: 18:20 Condition: Fair Sepsis Event Note (ED) - Focused Exam Vital Signs: Vital Signs Temp Pulse Resp BP Pulse Ox 10/31/20 14:43 96.9 F 62 18 164/86 H 97 - My Orders Last 24 Hours: My Active Orders 10/31/20 15:12 CULTURE BLOOD [BC] Stat 10/31/20 16:20 Vancomycin 1.25 gm Sodium Chloride 0.9% [Normal Saline (AdvBag)] 250 ml IV ONETIME - Assessment/Plan Last 24 Hours: My Active Orders 10/31/20 15:12 CULTURE BLOOD [BC] Stat 10/31/20 16:20 Vancomycin 1.25 gm Sodium Chloride 0.9% [Normal Saline (AdvBag)] 250 ml IV ONETIME
[2020-10-31 15:41] VITALS: BP 164/86; PULSE 62
[2020-10-31 16:06] LABS: CHLORIDE,CL 103 mmol/L (98-107); SODIUM,NA 141 mmol/L (136-145)
== END 2020-10-31 18:55 | disposition home or self-care (01) ==
LOC: DL.ED 13:37
DX: L03.116 Cellulitis of left lower limb (principal); S80.812A Abrasion, left lower leg, initial encounter; E05.90 Thyrotoxicosis, unspecified without thyrotoxic crisis or storm; E66.9 Obesity, unspecified; I10 Essential (primary) hypertension; K21.9 Gastro-esophageal reflux disease without esophagitis; Z88.6 Allergy status to analgesic agent; Z88.2 Allergy status to sulfonamides; Z68.42 Body mass index [BMI] 45.0-49.9, adult; Z79.899 Other long term (current) drug therapy; W55.03XA Scratched by cat, initial encounter
CPT/HCPCS: 36415; 80053; 83605; 85025; 87040; 96365; 99283-25; J3370; J7050

== ENCOUNTER 2020-11-10 14:38 | Emergency (ER) | payer MEDICARE, MEDICAID ==
[2020-11-10 15:29] VITALS: BP 149/64; PULSE 64
--- NOTE | 2020-11-10 16:22 | EDM.PDOC ---
<Lucie Silverio - Last Filed: 11/10/20 19:28> ED HPI GENERAL MEDICAL PROBLEM - General Chief Complaint: Skin Complaint Stated Complaint: LEGS HAVE CELLULITIS Time Seen by Provider: 11/10/20 15:45 - Related Data Allergies Allergy/AdvReac Type Severity Reaction Status Date / Time naproxen [From Naprosyn] Allergy Rash Verified 10/31/20 14:53 Sulfa (Sulfonamide Allergy Cannot Verified 10/31/20 14:53 Antibiotics) Remember Home Meds: Home Meds PARoxetine HCl [Paroxetine HCl] 20 mg PO DAILY 12/20/13 [History] oxyCODONE 10 mg PO TID 12/20/13 [History] Omeprazole 20 mg PO BIDMEALS 12/03/14 [History] PARoxetine HCl [Paroxetine HCl] 30 mg PO DAILY 12/03/14 [History] Propranolol [Inderal LA] 60 mg PO DAILY 12/03/14 [History] Morphine [MS Contin] 30 mg PO Q12HR 10/11/17 [History] Acetaminophen [Tylenol] 650 mg PO Q8H PRN 5 Days #20 tablet 10/13/17 [Rx] Carbidopa/Levodopa [Carbidopa-Levodopa 25-100 Tab] 1 tab PO BEDTIME 02/08/20 [History] Cyanocobalamin (Vitamin B-12) [Vitamin B-12] 1,000 mcg IM ASDIRECTED 02/08/20 [History] Gabapentin [Neurontin] 400 mg PO TID 02/08/20 [History] Levothyroxine 150 mcg PO ACBREAKFAST 02/08/20 [History] Methenamine Hippurate 2 gm PO BID 02/08/20 [History] Oxybutynin [Oxybutynin ER] 15 mg PO DAILY 02/08/20 [History] hydrOXYzine HCL [Hydroxyzine HCl] 25 mg PO TID PRN 02/08/20 [History] ondansetron HCL [Ondansetron HCl] 4 mg PO Q8HR PRN 02/08/20 [History] Fluticasone/Vilanterol [Breo Ellipta 100-25 MCG Inhalation Kit] 1 inhalation PO DAILY 02/11/20 [History] Clindamycin HCl 300 mg PO QID 11/10/20 [History] cephALEXin [Keflex] 500 mg PO Q8H 11/10/20 [History] Departure - Departure Time of Disposition: 19:29 Disposition: Home, Self-Care 01 Condition: Good Clinical Impression: Cellulitis Qualifiers: Site of cellulitis: extremity Site of cellulitis of extremity: lower extremity Laterality: unspecified laterality Qualified Code(s): L03.119 - Cellulitis of unspecified part of limb - Discharge Information *PRESCRIPTION DRUG MONITORING PROGRAM REVIEWED*: No *COPY OF PRESCRIPTION DRUG MONITORING REPORT IN PATIENT NINA: No Instructions: Cellulitis, Adult, [id number] Referrals: Mike Trivedi [Primary Care Provider] - Forms: ED Department Discharge Additional Instructions: Continue antibiotic continue home medications recheck clinic Tuesday or with primary care elevate extremity Tylenol 500mg every 4 hours as needed for discomfort <Monica Soliz - Last Filed: 11/13/20 03:40> ED HPI GENERAL MEDICAL PROBLEM - General Source of Information: Reports: Patient, Old Records, RN, RN Notes Reviewed History Limitations: Reports: No Limitations - History of Present Illness INITIAL COMMENTS - FREE TEXT/NARRATIVE: Swapna is a 65 y/o female who presents to the ED via personal vehicle with complaints of bilateral lower extremity redness and pain. The patient reports she was examined in this facility ten days prior for redness and pain to her left lower extremity. She was diagnosed with cellulitis and was treated with one dose of Vancomycin IVPB and sent home with a ten day course of Keflex and clindamycin. She states she feels her redness to her left lower extremity has not improved and now notes similar symptoms of the right lower extremity. She states she has not missed any doses of antibiotics, yet she still notes she has pills left. She denies fever, shaking chills, palpitations, shortness of breath, nausea, vomiting, or decreased sensory to the affected area. 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: Musculoskeletal History: Reports: Back Pain, Chronic, Osteoarthritis, Other (See Below) Other Musculoskeletal History: hip and knee pain,wheelchair bound Neurological History: Reports: None Psychiatric History: Reports: Depression Endocrine/Metabolic History: Reports: Hyperthyroidism, Obesity/BMI 30+ Hematologic History: Reports: Anemia Immunologic History: Reports: None Oncologic (Cancer) History: Reports: None Dermatologic History: Reports: Cellulitis Other Dermatologic History: several tattoos to bilateral arms - Infectious Disease History Infectious Disease History: Reports: MRSA - Past Surgical History Head Surgeries/Procedures: Reports: None HEENT Surgical History: Reports: None Cardiovascular Surgical History: Reports: None Respiratory Surgical History: Reports: None GI Surgical History: Reports: Colonoscopy Female Surgical History: Reports: None Endocrine Surgical History: Reports: None Musculoskeletal Surgical History: Reports: None Social & Family History - Family History Family Medical History: No Pertinent Family History - Tobacco Use Tobacco Use Status *Q: Unknown Ever Used Tobacco - Caffeine Use Caffeine Use: Reports: Coffee - Recreational Drug Use Recreational Drug Use: No ED ROS GENERAL - Review of Systems Review Of Systems: Comprehensive ROS is negative, except as noted in HPI. ED EXAM, SKIN/RASH Exam: See Below Exam Limited By: No Limitations General Appearance: Alert, No Apparent Distress, Obese Eye Exam: Bilateral Eye: EOMI, Normal Inspection, PERRL (3mm) Ears: Normal External Exam, Hearing Grossly Normal Nose: Normal Inspection, Normal Mucosa, No Blood Throat/Mouth: Normal Inspection, Normal Oropharynx, Normal Voice, No Airway Compromise Head: Atraumatic, Normocephalic Neck: Normal Inspection, Supple, Non-Tender, Full Range of Motion Respiratory/Chest: No Respiratory Distress, Lungs Clear, Normal Breath Sounds, No Accessory Muscle Use, Chest Non-Tender Cardiovascular: Normal Peripheral Pulses, Regular Rate, Rhythm, No Gallop, No JVD, No Murmur, No Rub. No: No Edema Peripheral Pulses: 2+: Radial (L), Radial (R) GI/Abdominal: Normal Bowel Sounds, Soft, Non-Tender, No Distention, No Abnormal Bruit, No Mass, Pelvis Stable (Female) Exam: Deferred Rectal (Female) Exam: Deferred Back Exam: Decreased Range of Motion (Chronic back pain) Extremities: Normal Range of Motion, Normal Capillary Refill, Pedal Edema (+1 pitting, bilaterally), Increased Warmth (Circumferential to bilateral lower extremities), Redness (Circumferential to bilateral lower extremities). No: Mottled, Pallor Neurological: Alert, Oriented, CN II-XII Intact, Normal Cognition, No Motor/Sensory Deficits, Abnormal Gait (Patient utilizes wheelchair for mobility) Psychiatric: Normal Affect, Normal Mood Skin: Warm, Dry, Intact, Erythema (To bilateral lower legs), Increased Warmth (To bilateral lower legs). No: Mottled, Pallor, Petechiae, Rash Location, Skin: Lower Extremity, Right, Lower Extremity, Left Characteristics: Erythematous Associated features: Warmth, Tenderness, Swelling, Inflammation. No: Induration, Scaling, Crusting, Weeping Lymphatic: No Adenopathy Course - Vital Signs Last Recorded V/S: Last Vital Signs Temp 97 F 11/10/20 15:25 Pulse 64 11/10/20 15:25 Resp 16 11/10/20 15:25 BP 149/64 H 11/10/20 15:25 Pulse Ox 97 11/10/20 15:25 - Orders/Labs/Meds Labs: Laboratory Tests 11/10/20 11/10/20 11/10/20 Range/Units 16:10 16:10 16:10 WBC 7.4 (5.0-10.0) 10^3/uL RBC 4.51 (4.2-5.4) 10^6/uL Hgb 12.6 D (12.0-16.0) g/dL Hct 40.5 (37.0-47.0) % MCV 89.8 (80-100) fL MCH 27.9 (27.0-34.0) pg MCHC 31.1 L (33.0-35.0) g/dL Plt Count 237 (150-450) 10^3/uL Neut % (Auto) 69.0 (42.2-75.2) % Lymph % (Auto) 19.8 L (20.5-50.1) % [place] % (Auto) 11.1 H (2-8) % Eos % (Auto) 0.0 L (1.0-3.0) % Baso % (Auto) 0.1 (0.0-1.0) % D-Dimer, Quantitative 1380 H (0-400) ng/mL Sodium 144 (136-145) mmol/L Potassium 3.6 (3.5-5.1) mmol/L Chloride 106 (98-107) mmol/L Carbon Dioxide 30 (21-32) mmol/L Anion Gap 11.6 (7-13) mEq/L BUN 9 (7-18) mg/dL Creatinine 0.78 (0.55-1.02) mg/dL Est Cr Clr Drug Dosing TNP Estimated GFR (MDRD) > 60 BUN/Creatinine Ratio 11.5 (No establ ref range) Glucose 125 H (70-99) mg/dL Calcium 8.2 L (8.5-10.1) mg/dL Total Bilirubin 0.4 (0.2-1.0) mg/dL AST 16 (15-37) U/L ALT 28 (14-59) U/L Alkaline Phosphatase 110 (46-116) U/L C-Reactive Protein 1.8 H (0.0-0.9) mg/dL Total Protein 6.8 (6.4-8.2) g/dL Albumin 2.8 L (3.4-5.0) g/dL Globulin 4.0 Albumin/Globulin Ratio 0.70 Meds: Medications Discontinued Medications Generic Name Dose Route Start Last Admin Trade Name Freq PRN Reason Stop Dose Admin Oxycodone HCl 10 mg 11/10/20 18:16 11/10/20 18:37 Oxycodone 5 Mg Tab PO 11/10/20 18:17 10 mg ONETIME ONE Administration - Re-Assessments/Exams Free Text/Narrative Re-Assessment/Exam: 11/10/20 Patient's home medications of oxycodone administered for pain to bilateral lower legs. Will obtain venous US given elevation in D-dimer. Findings of examination and lab work reviewed with patient. Patient verbalized understanding and agreement with the plan of care. Care of patient transferred to Lucie Silverio PA-C at 1900.
[2020-11-10 16:54] LABS: ANION GAP 11.6 mEq/L (7-13); CHLORIDE,CL 106 mmol/L (98-107); SODIUM,NA 144 mmol/L (136-145)
[2020-11-10] MEDS ORDERED: oxyCODONE 5 MG Tab PO ONE (18:16)
--- NOTE | 2020-11-10 19:27 | US ---
PROCEDURE INFORMATION: Exam: US Duplex Lower Extremity Veins, Bilateral Exam date and time: 11/10/2020 6:14 PM Age: 65 years old Clinical indication: Pain; Leg, lower; Bilateral; Additional info: Erythema and pain; Worsening since 10/31 TECHNIQUE: Imaging protocol: Real-time duplex ultrasound of the extremities with 2-D peck scale, color Doppler flow and spectral waveform analysis with image documentation. Complete exam focused on the bilateral lower extremity veins. Total images: 31 COMPARISON: No relevant prior studies available. FINDINGS: Right deep veins: Unremarkable. The common femoral, femoral, proximal profunda femoral and popliteal veins are patent without thrombus. Normal Doppler waveforms. Normal compressibility and/or augmentation response. Right superficial veins: Saphenofemoral junction is patent without thrombus. Left deep veins: Unremarkable. The common femoral, femoral, proximal profunda femoral and popliteal veins are patent without thrombus. Normal Doppler waveforms. Normal compressibility and/or augmentation response. Left superficial veins: Saphenofemoral junction is patent without thrombus. Soft tissues: Unremarkable. IMPRESSION: No evidence of deep vein thrombosis.
== END 2020-11-10 19:49 | disposition home or self-care (01) ==
LOC: DL.ED 14:38
DX: L03.115 Cellulitis of right lower limb (principal); L03.116 Cellulitis of left lower limb; E78.00 Pure hypercholesterolemia, unspecified; I10 Essential (primary) hypertension; K21.9 Gastro-esophageal reflux disease without esophagitis; E03.9 Hypothyroidism, unspecified; E66.9 Obesity, unspecified; Z68.45 Body mass index [BMI] 70 or greater, adult; Z88.5 Allergy status to narcotic agent; Z88.2 Allergy status to sulfonamides; Z79.899 Other long term (current) drug therapy
CPT/HCPCS: 36415; 80053; 85025; 85379; 86140; 93970; 99284; A9270

== ENCOUNTER 2021-06-08 14:34 | Emergency (ER) | payer MEDICARE, MEDICAID ==
[2021-06-08 15:19] VITALS: PULSE 82
[2021-06-08 16:19] LABS: CORONAVIRUS COVID-19 NAA NEGATIVE (NEGATIVE)
[2021-06-08 17:17] VITALS: BP 123/64
[2021-06-08 19:17] LABS: ANION GAP 12.6 mEq/L (7-13); CHLORIDE,CL 105 mmol/L (98-107); SODIUM,NA 144 mmol/L (136-145)
[2021-06-08] MEDS ORDERED: Doxycycline Monohydrate 100 MG Cap PO ONE (20:03)
== END 2021-06-08 20:17 | disposition home or self-care (01) ==
LOC: DL.ED 14:34
DX: L03.115 Cellulitis of right lower limb (principal); L03.116 Cellulitis of left lower limb; J42 Unspecified chronic bronchitis; E78.00 Pure hypercholesterolemia, unspecified; I10 Essential (primary) hypertension; E66.9 Obesity, unspecified; Z68.27 Body mass index [BMI] 27.0-27.9, adult; Z20.822 Contact with and (suspected) exposure to COVID-19; Z88.5 Allergy status to narcotic agent; Z88.2 Allergy status to sulfonamides
CPT/HCPCS: 0240U; 36415; 71045; 80053; 81003; 83605; 83735; 85025; 86140; 99283-25; 99284; A9270-GY

== ENCOUNTER 2022-08-15 13:19 | Emergency (ER) | payer MEDICARE, MEDICAID ==
[2022-08-15] MEDS ORDERED: Sodium Chloride 0.9% 10 ML Syringe FLUSH PRN (13:39)
[2022-08-15] MEDS ORDERED: Albuterol/Ipratropium 3.0-0.5 MG/3 ML Neb Soln NEB ONE (13:44)
[2022-08-15 14:10] LABS: BASOPHILS PERCENT AUTO 0.2 % (0.0-1.0); HEMATOCRIT 40.4 % (37.0-47.0); HEMOGLOBIN 12.6 g/dL (12.0-16.0); LYMPHOCYTES PERCENT AUTO 9.3 % (20.5-50.1); MEAN CORPUSCULAR HEMOGLOBIN 26.1 pg (27.0-34.0); MEAN CORPUSCULAR HGB CONC 31.2 g/dL (33.0-35.0); MEAN CORPUSCULAR VOLUME 83.8 fL (80-100); MONOCYTES PERCENT AUTO 3.7 % (2-8); NEUTROPHILS PERCENT AUTO 86.8 % (42.2-75.2); PLATELET COUNT,PLT 295 10^3/uL (150-450); RED BLOOD CELL COUNT 4.82 10^6/uL (4.2-5.4); WHITE BLOOD CELL COUNT,WBC 11.8 10^3/uL (5.0-10.0)
[2022-08-15 14:33] VITALS: BP 149/76; PULSE 78
[2022-08-15 14:34] LABS: LACTIC ACID 4.9 mmol/L (0.4-2.0)
[2022-08-15 14:37] LABS: A/G RATIO 0.9; ALANINE AMINOTRANSFERASE,ALT 36 U/L (14-59); ALBUMIN 3.5 g/dL (3.4-5.0); ALKALINE PHOSPHATASE 94 U/L (46-116); ANION GAP 13.3 mEq/L (7-13); ASPARTATE AMNIOTRANSFERASE,AST 29 U/L (15-37); BILIRUBIN TOTAL 0.5 mg/dL (0.2-1.0); BLOOD UREA NITROGEN,BUN 14 mg/dL (7-18); BUN/CREATININE RATIO 15.1 (No establ ref range); CALCIUM 8.8 mg/dL (8.5-10.1); CARBON DIOXIDE,CO2 27 mmol/L (21-32); CHLORIDE,CL 101 mmol/L (98-107); CREATININE 0.93 mg/dL (0.55-1.02); ESTIMATED GFR 67 mL/min (>=60); GLUCOSE RANDOM 260 mg/dL (70-99); POTASSIUM,K 4.3 mmol/L (3.5-5.1); PROTEIN TOTAL,TP 7.3 g/dL (6.4-8.2); SODIUM,NA 137 mmol/L (136-145)
[2022-08-15] MEDS ORDERED: Sodium Chloride 0.9% 1,000 ML IV ONE (14:45)
[2022-08-15] MEDS ORDERED: Levofloxacin/Dextrose 5%-Water 500 MG in Premix Bag 1 BAG IV ONE (14:46)
[2022-08-15] MEDS ORDERED: methylPREDNISolone Sodium Succinate 125 MG/2 ML SDV IVPUSH ONE (14:47)
[2022-08-15] MEDS ORDERED: Take Home: Benzonatate 100 MG, 6 Cap Pack PO ONE (16:25)
[2022-08-15] MEDS ORDERED: Benzonatate 100 MG Cap PO ONE (17:08)
== END 2022-08-15 17:44 | disposition home or self-care (01) ==
LOC: DL.ED 13:19
DX: J45.41 Moderate persistent asthma with (acute) exacerbation (principal); K44.9 Diaphragmatic hernia without obstruction or gangrene; E78.00 Pure hypercholesterolemia, unspecified; I10 Essential (primary) hypertension; K21.9 Gastro-esophageal reflux disease without esophagitis; E05.90 Thyrotoxicosis, unspecified without thyrotoxic crisis or storm; E66.9 Obesity, unspecified; Z68.30 Body mass index [BMI] 30.0-30.9, adult; Z88.2 Allergy status to sulfonamides; Z88.6 Allergy status to analgesic agent; Z79.899 Other long term (current) drug therapy; Z20.822 Contact with and (suspected) exposure to COVID-19
CPT/HCPCS: 36415; 71046; 71250; 80053; 83605; 85025; 87040; 87804; 94640; 96365; 96375; 99284; 99284-25; J1956; J2930; J3490; J7030; J7620-GY; U0002